=== PATIENT | male | born 1960 | race Caucasian/White ===

== ENCOUNTER 2020-11-30 07:44 | Inpatient (IN) | payer OTHER ==
[2020-11-30] VITALS (9 sets, daily range): BP systolic 121–164; BP diastolic 52–88
[~2020-11-30] VITALS: Ht 167.6 cm; Wt 80.3 kg
[~2020-11-30 07:44] MED LIST: HYDROmorphone 2 MG/ML VIAL IVP PRN; IV RINGERS,LACTATED 1000ML 1,000 ML IV SCH; MORPHINE SULFATE 2 MG/ML INJ. IVP PRN; PROCHLORPERAZINE 10 MG/2 ML VIAL. IVP PRN; fentaNYL PF VIAL 100 MCG/2 ML VIAL IVP PRN
[2020-11-30] MEDS ORDERED: MULT-496 PO (08:21)
[2020-11-30] MEDS ORDERED: CYAN10002 IJ (08:22)
[2020-11-30] MEDS ORDERED: GABA600T7 PO (08:23)
[2020-11-30] MEDS ORDERED: TAMS0.4C97 PO (08:23)
[2020-11-30] MEDS ORDERED: ONDANSETRON PF 4 MG/2 ML VIAL. ONE (08:57)
[2020-11-30] MEDS ORDERED: LIDOCAINE 2% PF 5 ML VIAL. ONE (08:57)
[2020-11-30] MEDS ORDERED: PROPOFOL 10 MG/ML (20ML) VIAL. IV ONE (08:57)
[2020-11-30] MEDS ORDERED: DEXAMETHASONE SOD PHOS 4 MG/ML VIAL ONE ×3 (08:57)
[2020-11-30] MEDS ORDERED: LIDOCAINE 1% PF 5 ML VIAL. ONE (08:57)
[2020-11-30] MEDS: ENOXAPARIN 40 MG/0.4 ML SYRINGE. SQ SCH (09:00)
[2020-11-30] MEDS ORDERED: HYDROmorphone 2 MG/ML VIAL ONE (09:00)
[2020-11-30] MEDS ORDERED: ROCURONIUM 100 MG/10 ML VIAL. ONE ×2 (09:01→11:18)
[2020-11-30] MEDS ORDERED: SEVOFLURANE > 120 MINUTES. IH ONE (09:01)
[2020-11-30] MEDS ORDERED: BUPIVACAINE-EPI 0.5% 30 ML VIAL KIT. ONE (09:34)
[2020-11-30] MEDS: cefOXitin SODIUM IV Push 2 GM VIAL. IVP PRN ×2 (10:11→12:11)
--- NOTE | 2020-11-30 10:40 | PDOC ---
SURGICAL PROGRESS NOTE DATE: 11/30/20 TIME: 10:37 Subjective Pre-Op Note 60 yo M with sigmoid colon mass. TO OR for laparoscopic versus open sigmoid colectomy. R/R/B/A d/w pt and pt's supportive . Risks, including, but not limited to: bleeding, infection, damage to surrounding structures, risk of anesthesia, risk of anastomotic leak, need for ostomy. They appear to understand, their questions are answered and they elect to proceed. Office note H&P reviewed and negative except for HPI. Vital Signs Vital Signs Date Time Temp Pulse Resp B/P (MAP) Pulse Ox O2 Delivery O2 Flow Rate FiO2 11/30/20 08:20 98.1 85 18 126/70 97 Room Air 98.1 Justicifation of Admission Dx: Justifications for Admission: Justification of Admission Dx: Yes Comments: colon resection GRANT SCHULER MD Nov 30, 2020 10:40
[2020-11-30] MEDS ORDERED: ePHEDrine PF IN SALINE 50 MG/10 ML SYRINGE. IV ONE (10:53)
[2020-11-30] MEDS ORDERED: GLYCOPYRROLATE 1 MG/5 ML VIAL. ONE ×3 (12:38→12:56)
[2020-11-30] MEDS ORDERED: NEOSTIGMINE 10 MG/10 ML VIAL. ONE (12:39)
[2020-11-30] MEDS ORDERED: PROCHLORPERAZINE 10 MG/2 ML VIAL. ONE (13:55)
[2020-11-30] MEDS ORDERED: fentaNYL PF VIAL 100 MCG/2 ML VIAL ONE (13:55)
[2020-11-30] MEDS: fentaNYL PF VIAL 100 MCG/2 ML VIAL IVP PRN ×2 (14:00→14:15)
[2020-11-30] MEDS: IV NORMAL SALINE 1000ML BAG 1,000 ML IV SCH (14:30)
[2020-11-30] MEDS ORDERED: ONDANSETRON PF 4 MG/2 ML VIAL. IVP PRN (14:30)
[2020-11-30] MEDS ORDERED: 0.9 % SODIUM CHLORIDE 10 ML DISP.SYRIN. IV PRN (14:30)
[2020-11-30] MEDS ORDERED: NALOXONE 0.4 MG/ML VIAL. IV PRN (14:30)
--- NOTE | 2020-11-30 14:32 | PDOC4 ---
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 Complications: none Operative Note: After obtaining informed consent, patient was taken to OR, induced under GETA and prepped in the usual fashion. 5 mm ports placed LUQ and RUQ, all under laparoscopic guidance. Abdominal cavity was explored and noted as above. Right lobe liver nodule identified and resected with endoshears. Hemostasis obtained with cautery. Frozen section c/w benign process. As other nodules had similar appearance, they are suspected to be benign. Sigmoid colon noted to be adherent to abdominal wall. Given this finding, open procedure is selected. Lower midline incision was made with cautery. Left white line of toldt divided and sigmoid mobilized. No obvious tumor invasion of side wall noted. ABBEY 75 used to divide colon proximal to area of concern and distal. Mesentery take using ligasure. Lymph node dissection extended to origin of inferior mesentery artery and VICENTA was ligated with 0 vicryl suture. Specimen sent to pathology with stitch in distal end. Bilateral ureters identified by Niki's sign (spasm with palpation) and remained uninjured. End to end sutured anastomosis created using inside layer of 3 0 PDS and outside layer of 3 0 vicyrl. When colon was opened, large amount (500 cc) stool evacuated c/w obstructing tumor. Anastomosis noted to be patent, under no tension and completely viable without leakage. Rigid sigmoidoscopy performed and demonstrated patency and no air leakage from anastomosis. Copious irrigation. Paulino drain brought around terminal ileum and out RLQ and secured with 3 0 nylon as ghost ileostomy. Peritoneum repaired with 0 vicryl. Anterior fascia repaired with 0 looped PDS. Skin repaired with 3 0 vicryl and 4 0 monocryl with paulino left in wound and secured with 3 0 nylon. Dressing placed. Patient tolerated procedure well and sent to PACU in stable condition. All counts correct. Wound class is 4. GRANT SCHULER MD Nov 30, 2020 14:32
[2020-11-30] MEDS: MORPHINE SULFATE 30 ML IV PRN (14:33)
[2020-11-30] MEDS: IV RINGERS,LACTATED 1000ML 1,000 ML IV SCH (14:37)
--- NOTE | 2020-11-30 17:22 | RAD ---
AP view of the abdomen Clinical indications: Postoperative study after colectomy. Postoperative count correct. 2 drains in p lace. FINDINGS: There is mild dilatation of the remaining colon measuring approximately 12 centimeters. 2 p enrose drains are apparent within the right side of the anatomic pelvis. Cholecystectomy clips are ap parent within the right upper quadrant. IMPRESSION: Mild postoperative functional ileus. Electronically signed by: Glen Roy MD (11/30/2020 5:20 PM) [id number]
[2020-11-30] MEDS ORDERED: FLU VACC QUAD 21-22 (6MOS+) PF 0.5 ML SYRINGE. VAX IM ONE (20:00)
[2020-12-01] MEDS: IV RINGERS,LACTATED 1000ML 1,000 ML IV SCH ×3 (00:55→20:57)
[2020-12-01 03:34] VITALS: BP 143/71
[2020-12-01 06:48] LABS: BASO % 0 % (0-3); EOS % 0 % (0-3); HEMATOCRIT 42.1 % (39.0-53.0); HEMOGLOBIN 14.4 g/dL (13.0-17.5); LYMPH # 1.3 x10^3/uL (1.0-4.8); LYMPH % 13 % (24-48); MEAN CORPUSCULAR HEMOGLOBIN 31 pg (25-35); MEAN CORPUSCULAR HGB CONC 34 g/dL (31-37); MEAN CORPUSCULAR VOLUME 92 fL (79-100); MONO # 0.5 x10^3/uL (0.0-1.1); MONO % 5 % (0-9); NEUT # 8.4 x10^3/uL (1.8-7.7); NEUT % 82 % (31-73); PLATELET COUNT 238 x10^3/uL (140-400); RED CELL DISTRIBUTION WIDTH 13.5 % (11.5-14.5); WHITE BLOOD COUNT 10.3 x10^3/uL (4.0-11.0)
[2020-12-01 07:00] VITALS: BP 142/80
[2020-12-01 07:01] LABS: CALCIUM 8.5 mg/dL (8.5-10.1); CREATININE 0.8 mg/dL (0.7-1.3); POTASSIUM 3.5 mmol/L (3.5-5.1)
[2020-12-01] MEDS: ENOXAPARIN 40 MG/0.4 ML SYRINGE. SQ SCH (08:22)
[2020-12-01] MEDS: IV NORMAL SALINE 1000ML BAG 1,000 ML IV SCH (08:28)
--- NOTE | 2020-12-01 08:47 | CONS ---
DATE OF CONSULTATION: 12/01/2020 LOCATION: He is in room #414. SUBJECTIVE: This 60-year-old male is well known to me, followup over many years in the office as well as outside the office. The patient was admitted yesterday for resection of the left, nearly obstructing sigmoid colon cancer. Findings at time of surgery included some palpable lymph nodes, which were removed and benign appearing liver lesion, which was biopsied along with the hemicolectomy. He is postop at this point in time complaining mainly of a dry mouth and feeling like his stomach is bloated, but he has had no nausea or vomiting. 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 He has a history of prior right hemicolectomy for high-grade adenoma back in 2017. He has had a prior cholecystectomy. He has history of benign prostatic hypertrophy. MEDICATIONS: Brought with the patient, listed on the computer and have been addressed. ALLERGIES: There are no allergies. 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 Social drinker. Does not abuse drugs. , lives at home with his . FAMILY HISTORY: Noncontributory. REVIEW OF SYSTEMS: As mentioned above. PHYSICAL EXAMINATION: GENERAL: He is a well-developed, well-nourished white male who appears 1 day postop. VITAL SIGNS: Stable. He is afebrile. O2 sats are good on 2 liters. HEAD, EYES, EARS, NOSE AND THROAT: Unremarkable. NECK: Supple. No lymphadenopathy, no thyromegaly. CHEST: Clear to auscultation. HEART: Regular rate and rhythm without S3, S4 or murmur. ABDOMEN: Soft, silent, bandaged. EXTREMITIES: Without cyanosis, clubbing, edema. NEUROLOGIC: Nonfocal. IMPRESSION:: 1. Status post left hemicolectomy for cancer of the colon with pathology pending. 2. Peripheral neuropathy due to B12 deficiency. PLAN: Continued regular postop care. Await return of bowel function. Pathology pending with further plans based on findings there, which hopefully are going to be good. LIAN/ELSI PFEIFFER: KRYS/shayne TID: [id number]
--- NOTE | 2020-12-01 09:23 | PDOC ---
SURGICAL PROGRESS NOTE DATE: 12/01/20 TIME: 09:22 Subjective resting sore no flatus Vital Signs Vital Signs Date Time Temp Pulse Resp B/P (MAP) Pulse Ox O2 Delivery O2 Flow Rate FiO2 12/01/20 07:51 Nasal Cannula 2.0 12/01/20 07:00 98.4 93 20 142/80 (100) 95 98.4 I&O Intake and Output 12/01/20 06:59 Intake Total 2800 ml Output Total 1100 ml Balance 1700 ml Intake IV Total 2800 ml Output Urine Total 1000 ml Estimated Blood Loss 100 ml General: Alert, Oriented X3, Cooperative Abdomen: Soft, Other (mildly distended , dressing intact ) Labs Laboratory Tests Test 12/01/20 06:35 White Blood Count 10.3 x10^3/uL (4.0-11.0) Red Blood Count 4.60 x10^6/uL (4.30-5.70) Hemoglobin 14.4 g/dL (13.0-17.5) Hematocrit 42.1 % (39.0-53.0) Mean Corpuscular Volume 92 fL (79-100) Mean Corpuscular Hemoglobin 31 pg (25-35) Mean Corpuscular Hemoglobin Concent 34 g/dL (31-37) Red Cell Distribution Width 13.5 % (11.5-14.5) Platelet Count 238 x10^3/uL (140-400) Neutrophils (%) (Auto) 82 % (31-73) Lymphocytes (%) (Auto) 13 % (24-48) Monocytes (%) (Auto) 5 % (0-9) Eosinophils (%) (Auto) 0 % (0-3) Basophils (%) (Auto) 0 % (0-3) Neutrophils # (Auto) 8.4 x10^3/uL (1.8-7.7) Lymphocytes # (Auto) 1.3 x10^3/uL (1.0-4.8) Monocytes # (Auto) 0.5 x10^3/uL (0.0-1.1) Eosinophils # (Auto) 0.0 x10^3/uL (0.0-0.7) Basophils # (Auto) 0.0 x10^3/uL (0.0-0.2) Sodium Level 138 mmol/L (136-145) Potassium Level 3.5 mmol/L (3.5-5.1) Chloride Level 101 mmol/L (98-107) Carbon Dioxide Level 30 mmol/L (21-32) Anion Gap 7 (6-14) Blood Urea Nitrogen 8 mg/dL (8-26) Creatinine 0.8 mg/dL (0.7-1.3) Estimated GFR (Cockcroft-Gault) 98.0 Glucose Level 119 mg/dL (70-99) Calcium Level 8.5 mg/dL (8.5-10.1) Laboratory Tests Test 12/01/20 06:35 White Blood Count 10.3 x10^3/uL (4.0-11.0) Red Blood Count 4.60 x10^6/uL (4.30-5.70) Hemoglobin 14.4 g/dL (13.0-17.5) Hematocrit 42.1 % (39.0-53.0) Mean Corpuscular Volume 92 fL (79-100) Mean Corpuscular Hemoglobin 31 pg (25-35) Mean Corpuscular Hemoglobin Concent 34 g/dL (31-37) Red Cell Distribution Width 13.5 % (11.5-14.5) Platelet Count 238 x10^3/uL (140-400) Neutrophils (%) (Auto) 82 % (31-73) Lymphocytes (%) (Auto) 13 % (24-48) Monocytes (%) (Auto) 5 % (0-9) Eosinophils (%) (Auto) 0 % (0-3) Basophils (%) (Auto) 0 % (0-3) Neutrophils # (Auto) 8.4 x10^3/uL (1.8-7.7) Lymphocytes # (Auto) 1.3 x10^3/uL (1.0-4.8) Monocytes # (Auto) 0.5 x10^3/uL (0.0-1.1) Eosinophils # (Auto) 0.0 x10^3/uL (0.0-0.7) Basophils # (Auto) 0.0 x10^3/uL (0.0-0.2) Sodium Level 138 mmol/L (136-145) Potassium Level 3.5 mmol/L (3.5-5.1) Chloride Level 101 mmol/L (98-107) Carbon Dioxide Level 30 mmol/L (21-32) Anion Gap 7 (6-14) Blood Urea Nitrogen 8 mg/dL (8-26) Creatinine 0.8 mg/dL (0.7-1.3) Estimated GFR (Cockcroft-Gault) 98.0 Glucose Level 119 mg/dL (70-99) Calcium Level 8.5 mg/dL (8.5-10.1) Assessment/Plan await bowel function increase activity today Justicifation of Admission Dx: Justifications for Admission: Justification of Admission Dx: Yes ANA MARÍA GARCIA APRN Dec 01, 2020 09:23
[2020-12-01] MEDS: MORPHINE SULFATE 30 ML IV PRN ×2 (10:04→21:05)
--- NOTE | 2020-12-01 10:26 | NUR ---
SW following. Discussed with RN, pt from home with , 2L (does not use oxygen at home), NPO, [employer]PER[employer]. Pt had surgery on 11/30/20. RN advised no SW needs at this time. SW will continue to follow.
[2020-12-01 10:37] VITALS: BP 120/75
[2020-12-01 15:00] VITALS: BP 127/70
--- NOTE | 2020-12-01 18:08 | PATHOLOGY ---
[facility] Accession Number: [id number] . 01 Material submitted: . PART A: liver - LIVER BIOPSY-FS PART B: sigmoid colon - SIGMOID COLON-STITCH DISTAL . 01 Clinical history: . COLON CANCER HS VS OPEN SIGMOID COLECTOMY POSS PROTECTING LOOP/ ILEOSTOMY FRESH FOR FROZEN COLECTOMY SIGMOID A: LIVER BIOPSY-SMALL HYALINIZED NODULE- NEGATIVE FOR MALIGNANCY RESULT REPORTED TO Ramsey QUICK IN THE OR . 02 Frozen section diagnosis: . INTRAOPERATIVE CONSULTATION WITH FROZEN SECTION: (Ike Turk M.D.): . FSA1. Liver biopsy: - Small hyalinized nodule - negative for malignancy. . The results are reported to Dr. Quick in the operating room. . Frozen section performed at [facility], [address] [place] [address]. . . FROZEN SECTION GROSS DESCRIPTION: A. The specimen is received fresh for intraoperative consultation and is designated "liver biopsy". This consists of a small wedge of yellow-brown liver tissue measuring up to 0.5 x 0.3 cm. On the surface there is a 2 mm landa nodule present. This is submitted for frozen section as FSA1. The tissue remaining from frozen section is submitted for permanent sections as A1. (JPKat/db; 11/30/2020) HEDY/GARRETT . 02 Diagnosis: A. Liver biopsy: - Small hyalinized nodule - negative for malignancy. . B. Segment of colon with attached mesocolon, sigmoid colectomy: - Invasive colorectal adenocarcinoma, moderately differentiated, forming a centrally ulcerated tumor mass with raised borders measuring 3.3 cm in greatest dimension, with tumor invasion through muscularis propria into subserosa. - Metastatic adenocarcinoma involving 12 of 28 mesocolic lymph nodes (12/28). - Proximal, distal, and mesocolic margins of resection negative for tumor. - Inked serosal surface of sigmoid colon negative for tumor. . (JPM:cale:wendi; 12/01/2020) . . . Surgical Pathology Cancer Case Summary . COLON AND RECTUM: Resection, Including Transanal Disk Excision of Rectal Neoplasms . Procedure ___ Other: B. Sigmoidectomy . Tumor Site ___ Sigmoid colon . Tumor Size Greatest dimension: 3.3 cm . Macroscopic Tumor Perforation ___ Not identified . Histologic Type ___ Adenocarcinoma . Histologic Grade ___ G2: Moderately differentiated . Tumor Extension ___ Tumor invades through the muscularis propria into pericolorectal tissue . Margins ___ All margins are uninvolved by invasive carcinoma, high grade dysplasia / intramucosal carcinoma, and low grade dysplasia . Margins examined: Proximal, distal, and mesocolic margins . + Distance of invasive carcinoma from closest margin: 9.0 cm . + Specify closest margin: Distal margin . . Treatment Effect ___ No known presurgical therapy . Lymphovascular Invasion ___ Not identified . Perineural Invasion ___ Not identified . + Type of Polyp in Which Invasive Carcinoma Arose + ___ None identified . Tumor Deposits ___ Not identified . Regional Lymph Nodes . Number of Lymph Nodes Involved: 12 . Number of Lymph Nodes Examined: 28 . . Pathologic Stage Classification (pTNM, AJCC 8th Edition) . Primary Tumor (pT) ___ pT3: Tumor invades through the muscularis propria into pericolorectal tissues . Regional Lymph Nodes (pN) ___ pN2b: Seven or more regional lymph nodes are positive . + Additional Pathologic Findings + ___ None identified . (JPM:lesli; 12/01/2020) [facility] 12/01/2020 1541 Local . 02 Electronically signed: . Beto Turk MD, Pathologist NPI- [id number] . 01 Gross description: . A. SEE GROSS DESCRIPTION. . B. The specimen is received in formalin, labeled "Kamlesh, Berhane, sigmoid colon-stitch distal" and consists of an oriented segment of sigmoid colon (30.7 cm in length by 2.8 cm diameter) with abundant attached fat. The specimen has been oriented with a stitch designating the distal end. The serosa is pink and dusky and displays a focal area of puckering (inked black, 2.1 x 1.8 cm). The proximal margin is inked blue, the distal margin is inked green, and the mesenteric margin is selectively inked orange. Located 3.3 cm and 6.0 cm from the serosal area of puckering, on the serosa of the attached fat, are two pale landa areas of discoloration (0.6 x 0.3 cm and 0.4 x 0.4 cm respectively) which are differentially inked blue and yellow, respectively. The specimen is opened to reveal, directly underlying the area of puckering, a landa-pink mass (3.3 x 2.7 cm) with raised, serpiginous borders and a granular, depressed center that comes to within 9.0 cm from the distal margin, 16.1 cm from the proximal margin, and approximately 10.5 cm from the mesenteric margin. Sectioning reveals landa semi-firm and fibrotic cut surfaces measuring up to 0.9 cm thick. The mass is suspicious for involving the overlying serosa (inked black) and invades 0.2 cm into the overlying attached fat. Sectioning through the fatty serosal areas of discoloration (inked blue and yellow) reveals two grossly positive candidate lymph nodes (0.9 x 0.9 x 0.9 cm and 1.4 x 0.8 x 0.8 cm). Twenty-three landa candidate lymph nodes (ranging from 0.2 x 0.2 x 0.2 cm to 1.5 x 1.3 x 1.1 cm) are identified in the attached fat, as well as five matted lymph nodes (0.5 x 0.4 x 0.4 cm to 1.3 x 1.1 x 1.1 cm). Photographs are taken. Latrine Cleaner sections to include the entirety of the candidate lymph nodes (that are not grossly positive) are submitted as follows: . B1-B2: Proximal margin, submitted en face, entirely submitted B3-B4: Distal margin, submitted en face, entirely submitted B5-B6: Mesenteric margin, submitted en face, represented B7-B11: Mass, represented to show proximity to overlying serosa in B7-B8, mass invading into attached fat in B9-B10 and mass to show adjacent uninvolved mucosa represented in B11 B12: Serosal areas of discoloration on attached fat with 2 grossly positive candidate lymph nodes, represented B13-B14: 5 grossly positive candidate lymph nodes (4 in B13 and 1 in B14) (from matted lymph nodes), represented B15: 2 grossly positive candidate lymph nodes, differentially inked red and green, represented B16: 3 intact candidate lymph nodes, entirely submitted B17-B18: 4 intact candidate lymph nodes within each cassette, entirely submitted B19: 3 intact candidate lymph nodes, entirely submitted B20: 2 bisected candidate lymph nodes, differentially inked black and blue, entirely submitted B21: 1 bisected lymph node (inked green) and 1 serially sectioned lymph node (with orange ink) showing proximity to mesenteric margin, entirely submitted B22: 2 bisected lymph nodes, 1 of which is inked black, the other is not inked, entirely submitted B23: 1 trisected candidate lymph node, entirely submitted (CRAIG; 11/30/2020) DKA/LBQ 12/01/2020 1330 Local . 02 Pathologist provided ICD-10: C18.7, C77.2 . 02 CPT . 189891, 522774, [id number] Specimen Comment: A courtesy copy of this report has been sent to [phone], [phone] Specimen Comment: [id number] Specimen Comment: Report sent to / DR PAZ Performed at: 01 [facility] [address] [place] [address], [place] [id number] MD Doug Funes MD Phone: [phone] Performed at: 02 [facility] [address] [place], [place] [id number] MD Beto Turk MD Phone: [phone]
[2020-12-01 19:00] VITALS: BP 133/74
[2020-12-01 23:00] VITALS: BP 125/75
[2020-12-02 03:00] VITALS: BP 138/76
[2020-12-02] MEDS: IV RINGERS,LACTATED 1000ML 1,000 ML IV SCH ×2 (05:39→16:11)
[2020-12-02 07:00] VITALS: BP 133/72
[2020-12-02] MEDS: MORPHINE SULFATE 30 ML IV PRN ×2 (09:00→20:23)
[2020-12-02] MEDS: ENOXAPARIN 40 MG/0.4 ML SYRINGE. SQ SCH (09:02)
[2020-12-02 11:00] VITALS: BP 129/73
--- NOTE | 2020-12-02 11:43 | PDOC ---
PROGRESS NOTES Date of Service DATE: 12/02/20 TIME: 11:43 Subjective Subjective doing "ok", no specific complaints Objective Objective Vital Signs Date Time Temp Pulse Resp B/P (MAP) Pulse Ox O2 Delivery O2 Flow Rate FiO2 12/02/20 09:32 Nasal Cannula 2.0 12/02/20 09:00 95 12/02/20 07:00 98.1 91 18 133/72 (92) 98.1 Intake and Output 12/02/20 07:00 Intake Total 1000 ml Output Total 2950 ml Balance -1950 ml Intake Oral 0 ml IV Total 1000 ml Output Urine Total 2950 ml Physical Exam Abdomen: Soft (dressing intact) Assessment Assessment POD 2 sigmoid resection Plan Plan of Care Supportive care, mobilize Comment Review of Relevant I have reviewed the following items maya (where applicable) has been applied. Labs Laboratory Tests Test 12/01/20 06:35 White Blood Count 10.3 x10^3/uL (4.0-11.0) Red Blood Count 4.60 x10^6/uL (4.30-5.70) Hemoglobin 14.4 g/dL (13.0-17.5) Hematocrit 42.1 % (39.0-53.0) Mean Corpuscular Volume 92 fL (79-100) Mean Corpuscular Hemoglobin 31 pg (25-35) Mean Corpuscular Hemoglobin Concent 34 g/dL (31-37) Red Cell Distribution Width 13.5 % (11.5-14.5) Platelet Count 238 x10^3/uL (140-400) Neutrophils (%) (Auto) 82 % (31-73) Lymphocytes (%) (Auto) 13 % (24-48) Monocytes (%) (Auto) 5 % (0-9) Eosinophils (%) (Auto) 0 % (0-3) Basophils (%) (Auto) 0 % (0-3) Neutrophils # (Auto) 8.4 x10^3/uL (1.8-7.7) Lymphocytes # (Auto) 1.3 x10^3/uL (1.0-4.8) Monocytes # (Auto) 0.5 x10^3/uL (0.0-1.1) Eosinophils # (Auto) 0.0 x10^3/uL (0.0-0.7) Basophils # (Auto) 0.0 x10^3/uL (0.0-0.2) Sodium Level 138 mmol/L (136-145) Potassium Level 3.5 mmol/L (3.5-5.1) Chloride Level 101 mmol/L (98-107) Carbon Dioxide Level 30 mmol/L (21-32) Anion Gap 7 (6-14) Blood Urea Nitrogen 8 mg/dL (8-26) Creatinine 0.8 mg/dL (0.7-1.3) Estimated GFR (Cockcroft-Gault) 98.0 Glucose Level 119 mg/dL (70-99) Calcium Level 8.5 mg/dL (8.5-10.1) Medications Current Medications Fentanyl Citrate (Fentanyl 2ml Vial) 25 mcg PRN Q5MIN PRN IVP MILD PAIN 1-3; Start 11/30/20 at 06:00; Stop 11/30/20 at 15:46; Status DC Fentanyl Citrate (Fentanyl 2ml Vial) 50 mcg PRN Q5MIN PRN IVP MODERATE PAIN 4-6 Last administered on 11/30/20at 14:15; Start 11/30/20 at 06:00; Stop 11/30/20 at 15:46; Status DC Morphine Sulfate (Morphine Sulfate) 1 mg PRN Q10MIN PRN IVP SEVERE PAIN 7-10; Start 11/30/20 at 06:00; Stop 11/30/20 at 15:46; Status DC Ringer's Solution 1,000 ml @ 30 mls/hr Q24H IV Last administered on 11/30/20at 08:36; Start 11/30/20 at 06:00; Stop 11/30/20 at 17:59; Status DC Hydromorphone HCl (Dilaudid) 0.5 mg PRN Q10MIN PRN IVP SEVERE PAIN 7-10, 2nd CHOICE; Start 11/30/20 at 06:00; Stop 11/30/20 at 15:46; Status DC Prochlorperazine Edisylate (Compazine) 5 mg PACU PRN PRN IVP NAUSEA, MRX1 Last administered on 11/30/20at 14:00; Start 11/30/20 at 06:00; Stop 11/30/20 at 15:46; Status DC Cefoxitin Sodium (Mefoxin) 2 gm 1X PRN PRN IVP PRIOR TO PROCEDURE Last administered on 11/30/20at 12:11; Start 11/30/20 at 06:00; Stop 11/30/20 at 21:00; Status DC Propofol (Diprivan) 200 mg STK-MED ONCE IV ; Start 11/30/20 at 08:57; Stop 11/30/20 at 08:57; Status DC Lidocaine HCl (Lidocaine Pf 2% Vial) 5 ml STK-MED ONCE .ROUTE ; Start 11/30/20 at 08:57; Stop 11/30/20 at 08:57; Status DC Ondansetron HCl (Zofran) 4 mg STK-MED ONCE .ROUTE ; Start 11/30/20 at 08:57; Stop 11/30/20 at 08:57; Status DC Dexamethasone Sodium Phosphate (Decadron) 4 mg STK-MED ONCE .ROUTE ; Start 11/30/20 at 08:57; Stop 11/30/20 at 08:57; Status DC Dexamethasone Sodium Phosphate (Decadron) 4 mg STK-MED ONCE .ROUTE ; Start 11/30/20 at 08:57; Stop 11/30/20 at 08:58; Status DC Dexamethasone Sodium Phosphate (Decadron) 4 mg STK-MED ONCE .ROUTE ; Start 11/30/20 at 08:57; Stop 11/30/20 at 08:58; Status DC Lidocaine HCl (Xylocaine-Mpf 1% 5ml Vial) 5 ml STK-MED ONCE .ROUTE ; Start 11/30/20 at 08:57; Stop 11/30/20 at 08:58; Status DC Hydromorphone HCl (Dilaudid) 2 mg STK-MED ONCE .ROUTE ; Start 11/30/20 at 09:00; Stop 11/30/20 at 09:01; Status DC Rocuronium Arley (Zemuron) 100 mg STK-MED ONCE .ROUTE ; Start 11/30/20 at 09:01; Stop 11/30/20 at 09:01; Status DC Sevoflurane (Ultane) 90 ml STK-MED ONCE IH ; Start 11/30/20 at 09:01; Stop 11/30/20 at 09:01; Status DC Bupivacaine HCl/ Epinephrine Bitart (Sensorcain-Epi 0.5% Kit) 30 ml STK-MED ONCE .ROUTE Last administered on 11/30/20at 10:47; Start 11/30/20 at 09:34; Stop 11/30/20 at 09:34; Status DC Ephedrine Sulfate (ePHEDrine PF IN SALINE SYRINGE) 50 mg STK-MED ONCE IV ; Start 11/30/20 at 10:53; Stop 11/30/20 at 10:54; Status DC Rocuronium Arley (Zemuron) 100 mg STK-MED ONCE .ROUTE ; Start 11/30/20 at 11:18; Stop 11/30/20 at 11:18; Status DC Glycopyrrolate (Robinul) 1 mg STK-MED ONCE .ROUTE ; Start 11/30/20 at 12:38; Stop 11/30/20 at 12:38; Status DC Neostigmine Methylsulfate (Bloxiverz) 10 mg STK-MED ONCE .ROUTE ; Start 11/30/20 at 12:39; Stop 11/30/20 at 12:39; Status DC Glycopyrrolate (Robinul) 1 mg STK-MED ONCE .ROUTE ; Start 11/30/20 at 12:40; Stop 11/30/20 at 12:41; Status DC Glycopyrrolate (Robinul) 1 mg STK-MED ONCE .ROUTE ; Start 11/30/20 at 12:56; Stop 11/30/20 at 12:56; Status DC Fentanyl Citrate (Fentanyl 2ml Vial) 100 mcg STK-MED ONCE .ROUTE ; Start 11/30/20 at 13:55; Stop 11/30/20 at 13:56; Status DC Prochlorperazine Edisylate (Compazine) 10 mg STK-MED ONCE .ROUTE ; Start 11/30/20 at 13:55; Stop 11/30/20 at 13:56; Status DC Enoxaparin Sodium (Lovenox 40mg Syringe) 40 mg Q24H SQ Last administered on 12/02/20at 09:02; Start 11/30/20 at 09:00 Sodium Chloride (Normal Saline Flush) 3 ml QSHIFT PRN IV AFTER MEDS AND BLOOD DRAWS; Start 11/30/20 at 14:30 Ringer's Solution 1,000 ml @ 100 mls/hr Q10H IV Last administered on 12/02/20at 05:39; Start 11/30/20 at 14:30 Naloxone HCl (Narcan) 0.4 mg PRN Q2MIN PRN IV SEE INSTRUCTIONS; Start 11/30/20 at 14:30 Sodium Chloride 1,000 ml @ 25 mls/hr Q24H IV ; Start 11/30/20 at 14:30 Morphine Sulfate 30 ml @ 0 mls/hr CONT PRN PRN IV PER PROTOCOL Last administered on 12/02/20at 09:00; Start 11/30/20 at 14:30 Ondansetron HCl (Zofran) 4 mg PRN Q6HRS PRN IVP NAAMALIAA, 1ST CHOICE; Start 11/30/20 at 14:30 Influenza Virus Vaccine Quadrival (Flulaval Quad [id number] Syringe) 0.5 ml ONCE ONCE VAX IM Last administered on 12/01/20at 08:25; Start 11/30/20 at 20:00; Stop 11/30/20 at 20:01; Status DC Active Scripts Active Reported Gabapentin 600 Mg Tablet 300 Mg PO BID Flomax (Tamsulosin Hcl) 0.4 Mg Cap.er.24h 1 Cap PO DAILY Cyanocobalamin Injection (Cyanocobalamin (Vitamin B-12)) 1,000 Mcg/1 Ml Vial 1,000 Mcg IJ WEEKLY Daily Value (Multivitamin) 1 Each Tablet 1 Tab PO DAILY 30 Days Vitals/I & O Vital Sign - Last 24 Hours 12/01/20 12/01/20 12/01/20 12/01/20 15:00 19:00 20:15 20:20 Temp 98.1 98.6 98.1 98.6 Pulse 86 91 Resp 20 18 B/P (MAP) 127/70 (89) 133/74 (93) Pulse Ox 97 95 O2 Delivery Room Air Nasal Cannula Nasal Cannula Nasal Cannula O2 Flow Rate 2.0 2.0 2.0 12/01/20 12/01/20 12/02/20 12/02/20 21:53 23:00 03:00 07:00 Temp 98.1 98.6 98.1 98.1 98.6 98.1 Pulse 100 90 91 Resp 18 18 18 B/P (MAP) 125/75 (92) 138/76 (96) 133/72 (92) Pulse Ox 94 94 95 95 O2 Delivery Nasal Cannula Nasal Cannula Nasal Cannula Nasal Cannula O2 Flow Rate 2.0 2.0 2.0 12/02/20 12/02/20 09:00 09:32 Pulse Ox 95 O2 Delivery Nasal Cannula Nasal Cannula O2 Flow Rate 2.0 2.0 Intake and Output 12/01/20 12/01/20 12/02/20 15:00 23:00 07:00 Intake Total 1000 ml Output Total 950 ml 2000 ml Balance -950 ml 1000 ml -2000 ml Justifications for Admission Other Justification CICI HO MD Dec 02, 2020 11:43
[2020-12-02] MEDS: IV NORMAL SALINE 1000ML BAG 1,000 ML IV SCH (14:30)
[2020-12-02 15:00] VITALS: BP 147/73
[2020-12-02 19:25] VITALS: BP 140/78
[2020-12-02 23:23] VITALS: BP 161/74
[2020-12-03 03:24] VITALS: BP 142/79
[2020-12-03] MEDS: IV RINGERS,LACTATED 1000ML 1,000 ML IV SCH ×2 (03:28→13:40)
[2020-12-03 07:15] VITALS: BP 145/84
[2020-12-03] MEDS: ENOXAPARIN 40 MG/0.4 ML SYRINGE. SQ SCH (08:59)
[2020-12-03] MEDS: MORPHINE SULFATE 30 ML IV PRN ×2 (09:47→22:04)
--- NOTE | 2020-12-03 11:14 | PN ---
DATE: 12/03/2020 DAILY PROGRESS NOTE LOCATION: He is in room 411. SUBJECTIVE: This 60-year-old white male remains hospitalized after removal of left colon cancer. It feels like he is improving slightly in the amount of pain, still has not had any return of bowel function, had a Sandoval catheter pulled approximately 3 hours ago and has not had any urination yet. OBJECTIVE: VITAL SIGNS: Stable. He is afebrile. GENERAL: He is awake and alert. CHEST: Clear. HEART: Regular. ABDOMEN: Soft and silent. EXTREMITIES: Without cyanosis, clubbing or edema. LABORATORY DATA: He does have pathologies back this morning showing moderately differentiated tumor 3.3 cm greatest dimension with tumor invasion through the muscularis propria into the subserosa and 12 of 28 mesocolic lymph nodes positive. ASSESSMENT: 1. Colon cancer with pathology as above. 2. Ongoing ileus postoperatively. PLAN: Continue present care. We will ask Oncology to see him probably tomorrow. Otherwise, same encouraged increased activity. JOEY DR: Khoa TID: [id number]
[2020-12-03 11:15] VITALS: BP 150/82
--- NOTE | 2020-12-03 11:57 | PN ---
DATE: 12/02/2020 LOCATION: He is in room #414. SUBJECTIVE: This 60-year-old male remains hospitalized after left colon resection for carcinoma of the colon. He is postoperative day #2. He states he had a better night. There has been no sign of return of bowel function, although he has felt like he might have the bowel movement. He did get a little more sleep last night. He still complains of dry mouth. OBJECTIVE: VITAL SIGNS: Stable and afebrile. GENERAL: He is awake and alert. He remains on O2. CHEST: Clear. HEART: Regular. ABDOMEN: Soft, silent, benign. EXTREMITIES: He has SCD hose on. NEUROLOGIC: Other than his left arm weakness which is present before admission and within normal limits. ASSESSMENT: 1. Postop day #2 status post left colon resection for carcinoma of the colon. 2. 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 3. Satisfactory postoperative return of bowel function. PLAN: Continue supportive care. return of bowel function. Final pathology. We will dictate plans for further treatment. BOWEN DR: Khoa TID: [id number]
--- NOTE | 2020-12-03 13:08 | PDOC ---
PROGRESS NOTES Date of Service DATE: 12/03/20 TIME: 13:06 Subjective Subjective Doing ok, feels bloated Objective Objective Vital Signs Date Time Temp Pulse Resp B/P (MAP) Pulse Ox O2 Delivery O2 Flow Rate FiO2 12/03/20 11:15 99.0 85 20 150/82 (104) 96 Room Air 99.0 12/03/20 07:59 2.0 Intake and Output 12/03/20 07:00 Intake Total 2400 ml Output Total 1600 ml Balance 800 ml Intake Oral 0 ml IV Total 1200 ml Other 1200 ml Output Urine Total 1600 ml Assessment Assessment S/P sigmoid colon resection Plan Plan of Care Postop care, await return of bowel function Comment Review of Relevant I have reviewed the following items maya (where applicable) has been applied. Medications Current Medications Fentanyl Citrate (Fentanyl 2ml Vial) 25 mcg PRN Q5MIN PRN IVP MILD PAIN 1-3; Start 11/30/20 at 06:00; Stop 11/30/20 at 15:46; Status DC Fentanyl Citrate (Fentanyl 2ml Vial) 50 mcg PRN Q5MIN PRN IVP MODERATE PAIN 4-6 Last administered on 11/30/20at 14:15; Start 11/30/20 at 06:00; Stop 11/30/20 at 15:46; Status DC Morphine Sulfate (Morphine Sulfate) 1 mg PRN Q10MIN PRN IVP SEVERE PAIN 7-10; Start 11/30/20 at 06:00; Stop 11/30/20 at 15:46; Status DC Ringer's Solution 1,000 ml @ 30 mls/hr Q24H IV Last administered on 11/30/20at 08:36; Start 11/30/20 at 06:00; Stop 11/30/20 at 17:59; Status DC Hydromorphone HCl (Dilaudid) 0.5 mg PRN Q10MIN PRN IVP SEVERE PAIN 7-10, 2nd CHOICE; Start 11/30/20 at 06:00; Stop 11/30/20 at 15:46; Status DC Prochlorperazine Edisylate (Compazine) 5 mg PACU PRN PRN IVP NAUSEA, MRX1 Last administered on 11/30/20at 14:00; Start 11/30/20 at 06:00; Stop 11/30/20 at 15:46; Status DC Cefoxitin Sodium (Mefoxin) 2 gm 1X PRN PRN IVP PRIOR TO PROCEDURE Last administered on 11/30/20at 12:11; Start 11/30/20 at 06:00; Stop 11/30/20 at 21:00; Status DC Propofol (Diprivan) 200 mg STK-MED ONCE IV ; Start 11/30/20 at 08:57; Stop 11/30/20 at 08:57; Status DC Lidocaine HCl (Lidocaine Pf 2% Vial) 5 ml STK-MED ONCE .ROUTE ; Start 11/30/20 at 08:57; Stop 11/30/20 at 08:57; Status DC Ondansetron HCl (Zofran) 4 mg STK-MED ONCE .ROUTE ; Start 11/30/20 at 08:57; Stop 11/30/20 at 08:57; Status DC Dexamethasone Sodium Phosphate (Decadron) 4 mg STK-MED ONCE .ROUTE ; Start 11/30/20 at 08:57; Stop 11/30/20 at 08:57; Status DC Dexamethasone Sodium Phosphate (Decadron) 4 mg STK-MED ONCE .ROUTE ; Start 11/30/20 at 08:57; Stop 11/30/20 at 08:58; Status DC Dexamethasone Sodium Phosphate (Decadron) 4 mg STK-MED ONCE .ROUTE ; Start 11/30/20 at 08:57; Stop 11/30/20 at 08:58; Status DC Lidocaine HCl (Xylocaine-Mpf 1% 5ml Vial) 5 ml STK-MED ONCE .ROUTE ; Start 11/30/20 at 08:57; Stop 11/30/20 at 08:58; Status DC Hydromorphone HCl (Dilaudid) 2 mg STK-MED ONCE .ROUTE ; Start 11/30/20 at 09:00; Stop 11/30/20 at 09:01; Status DC Rocuronium [place] (Zemuron) 100 mg STK-MED ONCE .ROUTE ; Start 11/30/20 at 09:01; Stop 11/30/20 at 09:01; Status DC Sevoflurane (Ultane) 90 ml STK-MED ONCE IH ; Start 11/30/20 at 09:01; Stop 11/30/20 at 09:01; Status DC Bupivacaine HCl/ Epinephrine Bitart (Sensorcain-Epi 0.5% Kit) 30 ml STK-MED ONCE .ROUTE Last administered on 11/30/20at 10:47; Start 11/30/20 at 09:34; Stop 11/30/20 at 09:34; Status DC Ephedrine Sulfate (ePHEDrine PF IN SALINE SYRINGE) 50 mg STK-MED ONCE IV ; Start 11/30/20 at 10:53; Stop 11/30/20 at 10:54; Status DC Rocuronium [place] (Zemuron) 100 mg STK-MED ONCE .ROUTE ; Start 11/30/20 at 11:18; Stop 11/30/20 at 11:18; Status DC Glycopyrrolate (Robinul) 1 mg STK-MED ONCE .ROUTE ; Start 11/30/20 at 12:38; Stop 11/30/20 at 12:38; Status DC Neostigmine Methylsulfate (Bloxiverz) 10 mg STK-MED ONCE .ROUTE ; Start 11/30/20 at 12:39; Stop 11/30/20 at 12:39; Status DC Glycopyrrolate (Robinul) 1 mg STK-MED ONCE .ROUTE ; Start 11/30/20 at 12:40; Stop 11/30/20 at 12:41; Status DC Glycopyrrolate (Robinul) 1 mg STK-MED ONCE .ROUTE ; Start 11/30/20 at 12:56; Stop 11/30/20 at 12:56; Status DC Fentanyl Citrate (Fentanyl 2ml Vial) 100 mcg STK-MED ONCE .ROUTE ; Start 11/30/20 at 13:55; Stop 11/30/20 at 13:56; Status DC Prochlorperazine Edisylate (Compazine) 10 mg STK-MED ONCE .ROUTE ; Start 11/30/20 at 13:55; Stop 11/30/20 at 13:56; Status DC Enoxaparin Sodium (Lovenox 40mg Syringe) 40 mg Q24H SQ Last administered on 12/03/20at 08:59; Start 11/30/20 at 09:00 Sodium Chloride (Normal Saline Flush) 3 ml QSHIFT PRN IV AFTER MEDS AND BLOOD DRAWS; Start 11/30/20 at 14:30 Ringer's Solution 1,000 ml @ 100 mls/hr Q10H IV Last administered on 12/03/20at 03:28; Start 11/30/20 at 14:30 Naloxone HCl (Narcan) 0.4 mg PRN Q2MIN PRN IV SEE INSTRUCTIONS; Start 11/30/20 at 14:30 Sodium Chloride 1,000 ml @ 25 mls/hr Q24H IV ; Start 11/30/20 at 14:30 Morphine Sulfate 30 ml @ 0 mls/hr CONT PRN PRN IV PER PROTOCOL Last administered on 12/03/20at 09:47; Start 11/30/20 at 14:30 Ondansetron HCl (Zofran) 4 mg PRN Q6HRS PRN IVP NAUESA, 1ST CHOICE; Start 11/30/20 at 14:30 Influenza Virus Vaccine Quadrival (Flulaval Quad 6600-5485 Syringe) 0.5 ml ONCE ONCE VAX IM Last administered on 12/01/20at 08:25; Start 11/30/20 at 20:00; Stop 11/30/20 at 20:01; Status DC Active Scripts Active Reported Gabapentin 600 Mg Tablet 300 Mg PO BID Flomax (Tamsulosin Hcl) 0.4 Mg Cap.er.24h 1 Cap PO DAILY Cyanocobalamin Injection (Cyanocobalamin (Vitamin B-12)) 1,000 Mcg/1 Ml Vial 1,000 Mcg IJ WEEKLY Daily Value (Multivitamin) 1 Each Tablet 1 Tab PO DAILY 30 Days Vitals/I & O Vital Sign - Last 24 Hours 12/02/20 12/02/20 12/02/20 12/02/20 15:00 19:25 20:00 20:23 Temp 97.8 98.4 97.8 98.4 Pulse 80 83 Resp 18 18 20 B/P (MAP) 147/73 (97) 140/78 (98) Pulse Ox 95 95 O2 Delivery Nasal Cannula Room Air Nasal Cannula Nasal Cannula O2 Flow Rate 2.0 2.0 2.0 12/02/20 12/02/20 12/03/20 12/03/20 20:53 23:23 03:24 07:15 Temp 98.5 98.3 98.3 98.5 98.3 98.3 Pulse 93 86 84 Resp 20 18 20 20 B/P (MAP) 161/74 (103) 142/79 (100) 145/84 (104) Pulse Ox 96 95 95 O2 Delivery Nasal Cannula Nasal Cannula Room Air Room Air O2 Flow Rate 2.0 2.0 12/03/20 12/03/20 07:59 11:15 Temp 99.0 99.0 Pulse 85 Resp 20 B/P (MAP) 150/82 (104) Pulse Ox 96 O2 Delivery Nasal Cannula Room Air O2 Flow Rate 2.0 Intake and Output 12/02/20 12/02/20 12/03/20 15:00 23:00 07:00 Intake Total 0 ml 0 ml 2400 ml Output Total 1600 ml Balance 0 ml 0 ml 800 ml Justifications for Admission Other Justification CICI HO MD Dec 03, 2020 13:08
[2020-12-03] MEDS: IV NORMAL SALINE 1000ML BAG 1,000 ML IV SCH (13:13)
--- NOTE | 2020-12-03 13:14 | NUR ---
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 Refer to EMAR for additional details.
[2020-12-03 15:00] VITALS: BP 172/84
--- NOTE | 2020-12-03 15:18 | NUR ---
Pt has not voided approx 8 hours since camarillo removal this am. Pt was encouraged by this RN numerous times to attempt to void per urinal. Pt attempted at this time without success. This RN bladder scanned pt. 779 mL noted on bladder scanner. Pt is post op day 3. Dr. Mario tirado for orders. Addendum: 12/03/20 at 1524 by TALISHA DODD RN This RN received telephone orders from Dr. Martin to replace camarillo catheter.
--- NOTE | 2020-12-03 15:21 | NUR ---
PT Screen complete After review of medical chart, and speaking with JOCELINE Neri, pt. would benefit from PT/OT services at this time. Please issue PT/OT evaluate and Rx orders if you agree. Thank you
[2020-12-03 19:25] VITALS: BP 149/78
[2020-12-03 23:19] VITALS: BP 141/75
[2020-12-04] MEDS: IV RINGERS,LACTATED 1000ML 1,000 ML IV SCH ×3 (00:06→20:43)
[2020-12-04 03:16] VITALS: BP 139/83
[2020-12-04 07:00] VITALS: BP 153/88
--- NOTE | 2020-12-04 08:57 | PDOC ---
SURGICAL PROGRESS NOTE DATE: 12/04/20 TIME: 08:56 Subjective required camarillo replacement, does take flomax less bloating minimal flatus mild nausea Vital Signs Vital Signs Date Time Temp Pulse Resp B/P (MAP) Pulse Ox O2 Delivery O2 Flow Rate FiO2 12/04/20 07:00 98.5 75 20 153/88 (109) 93 98.5 12/04/20 03:16 Room Air 12/03/20 20:00 2.0 I&O Intake and Output 12/04/20 07:00 Intake Total 3336.8 ml Output Total 2300 ml Balance 1036.8 ml Intake Oral 0 ml IV Total 2136.8 ml Other 1200 ml Output Urine Total 2300 ml General: Alert, Oriented X3, Cooperative Abdomen: Soft, Other (dressing dry) Assessment/Plan await improved bowel function resume flomax, possible removal camarillo 1-2 days Justicifation of Admission Dx: Justifications for Admission: Justification of Admission Dx: Yes ANA MARÍA GARCIA APRN Dec 04, 2020 08:57
[2020-12-04] MEDS ORDERED: TAMSULOSIN 0.4 MG CAP.ER.24H. PO ONE (09:00)
[2020-12-04] MEDS ORDERED: TAMSULOSIN 0.4 MG CAP.ER.24H. PO SCH (09:00)
[2020-12-04] MEDS: ENOXAPARIN 40 MG/0.4 ML SYRINGE. SQ SCH (10:28)
[2020-12-04 10:58] VITALS: BP 137/86
--- NOTE | 2020-12-04 12:05 | NUR ---
SW following. 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 Pt had surgery on 11/30/20. Await improved bowel function. SW will continue to follow.
--- NOTE | 2020-12-04 12:13 | PN ---
DATE: 12/04/2020 DAILY PROGRESS NOTE LOCATION: He is in room #414. SUBJECTIVE: This 60-year-old male remains hospitalized after left colon resection for cancer of the colon. He is having some improvement on a daily basis in the last 24 hours. OBJECTIVE: VITAL SIGNS: Stable. He is afebrile. GENERAL: He is awake, alert. He is off O2. CHEST: Clear. HEART: Regular. ABDOMEN: Soft with soft tinkles. He was unable to urinate and had to have Sandoval catheter replaced and we will restart his Flomax with a sip of water this morning and hopefully will be able to urinate later today. Pathology shows 12 out of 28 lymph nodes positive and moderately differentiated adenocarcinoma of the colon. This was discussed with him this morning and will ask for Oncology consultation today. ASSESSMENT: 1. Postoperative status post colon resection for carcinoma of the colon. Awaiting return of bowel function. 2. Vitamin B12 deficiency with neuropathy. PLAN: Continue supportive care. Oncology consult. Flomax p.o. Hopefully again we will be able to discontinue Sandoval catheter later today. KRYS/JEFRY/HAMIDA DR: KRYS/shayne TID: [id number]
[2020-12-04] MEDS: IV NORMAL SALINE 1000ML BAG 1,000 ML IV SCH (13:39)
[2020-12-04 14:53] VITALS: BP 152/82
[2020-12-04 19:00] VITALS: BP 144/73
[2020-12-04] MEDS: GABAPENTIN 300 MG CAPSULE. PO SCH (20:43)
[2020-12-04 23:00] VITALS: BP 143/76
[2020-12-05 03:00] VITALS: BP 144/75
[2020-12-05] MEDS: MORPHINE SULFATE 30 ML IV PRN (03:49)
[2020-12-05] MEDS: IV RINGERS,LACTATED 1000ML 1,000 ML IV SCH ×2 (03:50→16:50)
[2020-12-05 07:00] VITALS: BP 135/85
[2020-12-05] MEDS: ENOXAPARIN 40 MG/0.4 ML SYRINGE. SQ SCH (08:20)
[2020-12-05] MEDS: TAMSULOSIN 0.4 MG CAP.ER.24H. PO SCH (08:20)
[2020-12-05] MEDS: GABAPENTIN 300 MG CAPSULE. PO SCH ×2 (08:20→19:28)
--- NOTE | 2020-12-05 08:33 | PDOC ---
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
[2020-12-05 11:00] VITALS: BP 130/71
[2020-12-05] MEDS: oxyCODONE/APAP 5/325 1 TAB TABLET PO PRN ×4 (11:11→23:42)
--- NOTE | 2020-12-05 13:00 | PDOC2 ---
CONSULT Date of Consult Date of Consult DATE: 12/05/20 TIME: 12:52 Reason for Consult Reason for Consult: Colon cancer Referring Physician Referring Physician: Dr. Quick Identification/Chief Complaint Chief Complaint Colon cancer diagnosis and surgery Source Source: Chart review, Patient History of Present Illness Reason for Visit: Berhane Whitlock is a 60-year-old male who has been admitted to the hospital for hemicolectomy. Berhane reports having had a screening colonoscopy performed recently. He was informed that it showed a near obstructing mass in the sigmoid colon. He established care with Dr. Quick. On 11/30/2020, Dr. Quick performed a sigmoid colectomy. A solid nodule noted on the surface of the liver was also sampled. Pathology showed invasive moderately differentiated colonic adenocarcinoma with invasion through muscularis propria into subserosa consistent with pathologic T3 stage. Metastatic adenocarcinoma was also noted in 12 of 28 sampled mesocolic lymph nodes consistent with a lymph nodes staging of N2b. He is recovering appropriately from surgery. Currently awaiting recovery of bowel function in order to resume oral dietary intake. He reports abdominal discomfort. He denies fever or chills. Reports a family history of metastatic colon cancer in his mother who ultimately succumbed to this diagnosis. He does not have any additional family history of cancer. Medical oncology consultation has been requested for additional recommendations regarding management. Patient is accompanied by his spouse Current Medications Current Medications Current Medications Fentanyl Citrate (Fentanyl 2ml Vial) 25 mcg PRN Q5MIN PRN IVP MILD PAIN 1-3; Start 11/30/20 at 06:00; Stop 11/30/20 at 15:46; Status DC Fentanyl Citrate (Fentanyl 2ml Vial) 50 mcg PRN Q5MIN PRN IVP MODERATE PAIN 4-6 Last administered on 11/30/20at 14:15; Start 11/30/20 at 06:00; Stop 11/30/20 at 15:46; Status DC Morphine Sulfate (Morphine Sulfate) 1 mg PRN Q10MIN PRN IVP SEVERE PAIN 7-10; Start 11/30/20 at 06:00; Stop 11/30/20 at 15:46; Status DC Ringer's Solution 1,000 ml @ 30 mls/hr Q24H IV Last administered on 11/30/20at 08:36; Start 11/30/20 at 06:00; Stop 11/30/20 at 17:59; Status DC Hydromorphone HCl (Dilaudid) 0.5 mg PRN Q10MIN PRN IVP SEVERE PAIN 7-10, 2nd CHOICE; Start 11/30/20 at 06:00; Stop 11/30/20 at 15:46; Status DC Prochlorperazine Edisylate (Compazine) 5 mg PACU PRN PRN IVP NAUSEA, MRX1 Last administered on 11/30/20at 14:00; Start 11/30/20 at 06:00; Stop 11/30/20 at 15:46; Status DC Cefoxitin Sodium (Mefoxin) 2 gm 1X PRN PRN IVP PRIOR TO PROCEDURE Last administered on 11/30/20at 12:11; Start 11/30/20 at 06:00; Stop 11/30/20 at 21:00; Status DC Propofol (Diprivan) 200 mg STK-MED ONCE IV ; Start 11/30/20 at 08:57; Stop 11/30/20 at 08:57; Status DC Lidocaine HCl (Lidocaine Pf 2% Vial) 5 ml STK-MED ONCE .ROUTE ; Start 11/30/20 at 08:57; Stop 11/30/20 at 08:57; Status DC Ondansetron HCl (Zofran) 4 mg STK-MED ONCE .ROUTE ; Start 11/30/20 at 08:57; Stop 11/30/20 at 08:57; Status DC Dexamethasone Sodium Phosphate (Decadron) 4 mg STK-MED ONCE .ROUTE ; Start 11/30/20 at 08:57; Stop 11/30/20 at 08:57; Status DC Dexamethasone Sodium Phosphate (Decadron) 4 mg STK-MED ONCE .ROUTE ; Start 11/30/20 at 08:57; Stop 11/30/20 at 08:58; Status DC Dexamethasone Sodium Phosphate (Decadron) 4 mg STK-MED ONCE .ROUTE ; Start 11/30/20 at 08:57; Stop 11/30/20 at 08:58; Status DC Lidocaine HCl (Xylocaine-Mpf 1% 5ml Vial) 5 ml STK-MED ONCE .ROUTE ; Start 11/30/20 at 08:57; Stop 11/30/20 at 08:58; Status DC Hydromorphone HCl (Dilaudid) 2 mg STK-MED ONCE .ROUTE ; Start 11/30/20 at 09:00; Stop 11/30/20 at 09:01; Status DC Rocuronium [place] (Zemuron) 100 mg STK-MED ONCE .ROUTE ; Start 11/30/20 at 09:01; Stop 11/30/20 at 09:01; Status DC Sevoflurane (Ultane) 90 ml STK-MED ONCE IH ; Start 11/30/20 at 09:01; Stop 11/30/20 at 09:01; Status DC Bupivacaine HCl/ Epinephrine Bitart (Sensorcain-Epi 0.5% Kit) 30 ml STK-MED ONCE .ROUTE Last administered on 11/30/20at 10:47; Start 11/30/20 at 09:34; Stop 11/30/20 at 09:34; Status DC Ephedrine Sulfate (ePHEDrine PF IN SALINE SYRINGE) 50 mg STK-MED ONCE IV ; Start 11/30/20 at 10:53; Stop 11/30/20 at 10:54; Status DC Rocuronium [place] (Zemuron) 100 mg STK-MED ONCE .ROUTE ; Start 11/30/20 at 11:18; Stop 11/30/20 at 11:18; Status DC Glycopyrrolate (Robinul) 1 mg STK-MED ONCE .ROUTE ; Start 11/30/20 at 12:38; Stop 11/30/20 at 12:38; Status DC Neostigmine Methylsulfate (Bloxiverz) 10 mg STK-MED ONCE .ROUTE ; Start 11/30/20 at 12:39; Stop 11/30/20 at 12:39; Status DC Glycopyrrolate (Robinul) 1 mg STK-MED ONCE .ROUTE ; Start 11/30/20 at 12:40; Stop 11/30/20 at 12:41; Status DC Glycopyrrolate (Robinul) 1 mg STK-MED ONCE .ROUTE ; Start 11/30/20 at 12:56; Stop 11/30/20 at 12:56; Status DC Fentanyl Citrate (Fentanyl 2ml Vial) 100 mcg STK-MED ONCE .ROUTE ; Start 11/30/20 at 13:55; Stop 11/30/20 at 13:56; Status DC Prochlorperazine Edisylate (Compazine) 10 mg STK-MED ONCE .ROUTE ; Start 11/30/20 at 13:55; Stop 11/30/20 at 13:56; Status DC Enoxaparin Sodium (Lovenox 40mg Syringe) 40 mg Q24H SQ Last administered on 12/05/20at 08:20; Start 11/30/20 at 09:00 Sodium Chloride (Normal Saline Flush) 3 ml QSHIFT PRN IV AFTER MEDS AND BLOOD DRAWS; Start 11/30/20 at 14:30 Ringer's Solution 1,000 ml @ 50 mls/hr Q20H IV Last administered on 12/05/20at 03:50; Start 11/30/20 at 14:30 Naloxone HCl (Narcan) 0.4 mg PRN Q2MIN PRN IV SEE INSTRUCTIONS; Start 11/30/20 at 14:30 Sodium Chloride 1,000 ml @ 25 mls/hr Q24H IV ; Start 11/30/20 at 14:30; Stop 12/05/20 at 08:39; Status DC Morphine Sulfate 30 ml @ 0 mls/hr CONT PRN PRN IV PER PROTOCOL Last administered on 12/05/20at 03:49; Start 11/30/20 at 14:30; Stop 12/05/20 at 08:33; Status DC Ondansetron HCl (Zofran) 4 mg PRN Q6HRS PRN IVP NAUESA, 1ST CHOICE; Start 11/30/20 at 14:30 Influenza Virus Vaccine Quadrival (Flulaval Quad [id number] Syringe) 0.5 ml ONCE ONCE VAX IM Last administered on 12/01/20at 08:25; Start 11/30/20 at 20:00; Stop 11/30/20 at 20:01; Status DC Tamsulosin HCl (Flomax) 0.4 mg 1X ONCE PO Last administered on 12/04/20at 10:27; Start 12/04/20 at 09:00; Stop 12/04/20 at 09:01; Status DC Tamsulosin HCl (Flomax) 0.4 mg DAILY PO ; Start 12/04/20 at 09:00; Stop 12/04/20 at 08:59; Status DC Gabapentin (Neurontin) 300 mg BID PO Last administered on 12/05/20at 08:20; Start 12/04/20 at 21:00 Tamsulosin HCl (Flomax) 0.4 mg DAILY PO Last administered on 12/05/20at 08:20; Start 12/05/20 at 09:00 Oxycodone/ Acetaminophen (Percocet 5/325) 1 tab PRN Q4HRS PRN PO PAIN Last administered on 12/05/20at 11:11; Start 12/05/20 at 08:30 Morphine Sulfate (Morphine Sulfate) 2 mg PRN Q2HR PRN IVP PAIN; Start 12/05/20 at 08:30 Active Scripts Active Reported Gabapentin 600 Mg Tablet 300 Mg PO BID Flomax (Tamsulosin Hcl) 0.4 Mg Cap.er.24h 1 Cap PO DAILY Cyanocobalamin Injection (Cyanocobalamin (Vitamin B-12)) 1,000 Mcg/1 Ml Vial 1,000 Mcg IJ WEEKLY Daily Value (Multivitamin) 1 Each Tablet 1 Tab PO DAILY 30 Days Allergies Allergies: Coded Allergies: No Known Drug Allergies (Unverified , 11/30/20) ROS Review of System Negative unless stated otherwise in HPI Physical Exam Physical Exam General: Awake, alert, no distress Head: Atraumatic, no conjunctival icterus, normal oral cavity mucosa Neck: Supple, no lymphadenopathy Chest: No trauma noted Cardiovascular: Regular rhythm, normal rate, no murmurs Respiratory: Bilateral air entry noted, lungs clear to auscultation bilaterally. No accessory muscle use Abdominal: Abdomen is soft, nontender, nondistended. Bowel sounds were normal. No hepatomegaly or splenomegaly Musculoskeletal: No deformity noted Extremities: No edema noted Skin: No rash or lesions Neurologic: Alert and oriented x3, no grossly evident neurologic deficits noted. Full neurological exam was not performed Psychiatric: Appropriate mood and affect Vitals VITALS Vital Signs Date Time Temp Pulse Resp B/P (MAP) Pulse Ox O2 Delivery O2 Flow Rate FiO2 12/05/20 11:11 Room Air 12/05/20 11:00 98.6 81 18 130/71 (90) 94 98.6 12/04/20 08:00 2.0 Assessment/Plan Assessment/Plan Assessment: Colonic adenocarcinoma, [id number], stage III Postoperative ileus History of B12 deficiency Recommendations: -We discussed the results of surgical pathology and significance of stage III disease -I discussed with the patient that recurrence rate for stage III colon cancer is typically 30 to 50%. We discussed the data supporting adjuvant chemotherapy for reduction of recurrence risk -We briefly discussed the potential side effects of chemotherapy with FOLFOX 12 cycles. We agreed to defer further discussion of adjuvant chemotherapy to a later time when he is released from the hospital -He reports having and CT CAP and diagnostic imaging. We will request results -Given anticipated chemotherapy, I recommended obtaining a Port-A-Cath for central venous access. He was agreeable to this and will be seeing Dr. Quick to have port placed -Continue postoperative care per Dr. Quick and team -Rest per Dr. Helton. Patient was given contact information for my office to arrange outpatient follow-up. We will plan to see him in 2 to 3 weeks to assess recovery from surgery and discuss timeline for adjuvant chemotherapy MARYELLEN VILLA MD Dec 05, 2020 13:00
[2020-12-05 13:30] LABS: PROTHROMBIN TIME PATIENT 13.1 SEC (11.7-14.0)
[2020-12-05 15:00] VITALS: BP 142/83
--- NOTE | 2020-12-05 16:14 | PN ---
DATE: 12/05/2020 DAILY PROGRESS NOTE LOCATION: He is in room 414. SUBJECTIVE: This 60-year-old male remains hospitalized after left colon resection for cancer of the colon. He is sleeping soundly this morning and slept through at least 2-3 attempts to wake him up verbally. He appears very comfortable and I discussed with nursing and let them know that I have been through. OBJECTIVE: CHEST: Clear. HEART: Regular. ABDOMEN: Soft. He has had a couple of loose bowel movements in the last 24 hours per nursing. We are still awaiting Oncology consultation. IMPRESSION: 1. Postoperative status post colon resection for carcinoma of the colon. 2. Returning bowel function. 3. Vitamin B12 deficiency with neuropathy. PLAN: Continue present. Advance diet per Surgery. Would anticipate discharge probably tomorrow. Hopefully, Oncology will see him today to make plans going forward. JOEY/KATHY DR: Khoa TID: [id number]
[2020-12-05] MEDS: MORPHINE SULFATE 2 MG/ML INJ. IVP PRN (16:44)
[2020-12-05 19:00] VITALS: BP 129/77
[2020-12-05 23:00] VITALS: BP 155/84
[2020-12-06] VITALS (13 sets, daily range): BP systolic 119–165; BP diastolic 65–97
[2020-12-06] MEDS: oxyCODONE/APAP 5/325 1 TAB TABLET PO PRN ×4 (03:44→18:36)
[2020-12-06] MEDS: MORPHINE SULFATE 2 MG/ML INJ. IVP PRN (03:49)
[2020-12-06] MEDS ORDERED: LIDOCAINE 2%/EPI 1:100,000 20 ML VIAL. ONE (07:57)
[2020-12-06] MEDS ORDERED: MIDAZOLAM HCL/PF 2 MG/2 ML VIAL. ONE (08:20)
[2020-12-06] MEDS ORDERED: fentaNYL PF VIAL 100 MCG/2 ML VIAL ONE (08:21)
[2020-12-06] MEDS ORDERED: fentaNYL PF VIAL 100 MCG/2 ML VIAL IV ONE (08:30)
[2020-12-06] MEDS ORDERED: MIDAZOLAM HCL/PF 2 MG/2 ML VIAL. IV ONE (08:30)
[2020-12-06] MEDS ORDERED: LIDOCAINE 2%/EPI 1:100,000 20 ML VIAL. IJ ONE (08:30)
--- NOTE | 2020-12-06 09:50 | PN ---
DATE: 12/06/2020 DAILY PROGRESS NOTE LOCATION: He is in room 414. SUBJECTIVE: This 60-year-old male remains hospitalized after left colon resection for cancer of the colon. He is awake and alert this morning, has had several bowel movements in the last 24 hours. He is generally feeling better, is little bit nervous about getting a port placed today for chemotherapy. He still has only had a soft diet. He still has Sandoval catheter in place, is back on the Flomax and hopefully will be able to urinate after it is removed this morning. OBJECTIVE: VITAL SIGNS: Stable. He is afebrile. GENERAL: He is awake and alert. CHEST: Clear. HEART: Regular. ABDOMEN: Soft. He has decent bowel sounds. Oncology consultation is appreciated. IMPRESSION: 1. Postoperative, status post colon resection for carcinoma of the colon with 03/06 regional lymph nodes positive for metastatic disease. 2. Normal CEA, postop. 3. Vitamin B12 deficiency with neuropathy. PLAN: Continue advanced diet per Surgery, port placement today, likely discharge soon. Hopefully, will be able to urinate when catheter is removed. MORRIS DR: Khoa TID: [id number]
[2020-12-06] MEDS: GABAPENTIN 300 MG CAPSULE. PO SCH ×2 (10:11→21:39)
[2020-12-06] MEDS: TAMSULOSIN 0.4 MG CAP.ER.24H. PO SCH (10:11)
[2020-12-06] MEDS: ENOXAPARIN 40 MG/0.4 ML SYRINGE. SQ SCH (10:13)
--- NOTE | 2020-12-06 10:23 | NUR ---
SW following. Discussed with RN, pt from home with , room air, full liquid diet (possibly advancing today). Pt had a portacath place. Oncology following. RN anticipates discharge home tomorrow. SW will continue to follow.
--- NOTE | 2020-12-06 12:46 | PDOC ---
SURGICAL PROGRESS NOTE DATE: 12/06/20 TIME: 12:45 Subjective Pt with c/o some incisional pain, but otherwise doing well, adwoa soft diet, portacath placed today Vital Signs Vital Signs Date Time Temp Pulse Resp B/P (MAP) Pulse Ox O2 Delivery O2 Flow Rate FiO2 12/06/20 10:15 89 18 165/97 (119) 97 Room Air 12/06/20 09:06 2.0 12/06/20 07:00 98.8 98.8 I&O Intake and Output 12/06/20 07:00 Intake Total 280 ml Output Total 2700 ml Balance -2420 ml Intake Oral 280 ml Output Urine Total 2700 ml General: Alert, Oriented X3, Cooperative, No acute distress Abdomen: Soft, No tenderness Labs Laboratory Tests Test 12/05/20 13:05 Prothrombin Time 13.1 SEC (11.7-14.0) Prothromb Time International Ratio 1.0 (0.8-1.1) Laboratory Tests Test 12/05/20 13:05 Prothrombin Time 13.1 SEC (11.7-14.0) Prothromb Time International Ratio 1.0 (0.8-1.1) Problem List s/p sigmoid ADAT d/c [place] plan d/c home in AM Justicifation of Admission Dx: Justifications for Admission: Justification of Admission Dx: Yes GRANT SCHULER MD Dec 06, 2020 12:46
--- NOTE | 2020-12-06 15:44 | RAD ---
PROCEDURE: Fluoroscopically and ultrasound-guided placement of right internal jugular tunnel central venous catheter with port (Bard PowerPort, Groshong tip ). Clinical Indication: Colon cancer Discussion: The risks and benefits of the procedure were discussed with the patient and/or their eligibility services representative. Informed consent was obtained. The patient was brought to the fluoroscopy suite and placed in supine position. A time out procedure was performed. The right neck and chest were prepped and draped using maximum sterile barrier technique including th e use of: Current guideline approved cutaneous antisepsis, a large sterile sheet to establish a steri le field. Additionally the auxiliary plant operator wore a hat, mask, sterile gloves, a sterile gown during the proce dure as well as practiced acceptable hand hygiene prior to placing the port. Ultrasound-guided access: Ultrasound evaluation showed the right jugular vein to be patent and compr essible. 1 % lidocaine with epinephrine was administered to the skin and subcutaneous tissues overlyi ng the right neck and chest. Under direct ultrasound guidance a single wall puncture was made followe d by tract dilation and placement of a sheath. An ultrasound image was saved and sent to PACS. Next, an incision was made in an infraclavicular location and a pocket created. The catheter was tunneled between the pocket and the venotomy site. The catheter was advanced through the peel away sheath, u nder fluoroscopic guidance, such that it's tip was in the mid right atrium. The catheter was connecte d to the port reservoir. The port was accessed and found to flush and aspirate normally. The reservoi r was then placed into the subcutaneous pocket. The wound was closed in layers using 3 Vicryl and 4- 0 Vicryl suture. Dermabond was applied overlying the wound, and venotomy site. The patient tolerated procedure without immediate complication. Sedation: Conscious sedation was performed for 30 minutes. Sedation was carried out while the patie nt was continually monitored by a member of the Radiology nursing staff. Continual cardiopulmonary m onitoring was carried out during the procedure. The patient tolerated the procedure well and there w ere no immediate complications. Fluoroscopy time: 0.7 mins Dose area product 1 reynaga 7 sq m Impression: Successful ultrasound and fluoroscopically guided placement of right internal jugular ludwig esperanza central venous catheter with port (Bard PowerPort, Groshong tip). Electronically signed by: Josiah Bell MD (12/06/2020 3:42 PM) [id number]
[2020-12-06] MEDS: IV RINGERS,LACTATED 1000ML 1,000 ML IV SCH (18:37)
[2020-12-07] MEDS: oxyCODONE/APAP 5/325 1 TAB TABLET PO PRN ×3 (01:37→13:57)
[2020-12-07] MEDS: MORPHINE SULFATE 2 MG/ML INJ. IVP PRN ×2 (02:31→12:04)
[2020-12-07 03:00] VITALS: BP 136/73
[2020-12-07 07:00] VITALS: BP 126/81
[2020-12-07] MEDS: TAMSULOSIN 0.4 MG CAP.ER.24H. PO SCH (08:34)
[2020-12-07] MEDS: ENOXAPARIN 40 MG/0.4 ML SYRINGE. SQ SCH (08:34)
[2020-12-07] MEDS: GABAPENTIN 300 MG CAPSULE. PO SCH (08:34)
--- NOTE | 2020-12-07 09:33 | PN ---
DATE: 12/07/2020 LOCATION: He is in room 414. SUBJECTIVE: This 60-year-old male remains hospitalized after left colon resection for cancer of the colon. He is awake, alert. He has ongoing bowel movements, generally feeling better, had Port-A-Cath placed yesterday and was a little bit sore. He is tolerating a regular diet. The [place] is out since yesterday and he has urinated. OBJECTIVE: VITAL SIGNS: Stable. GENERAL: He is awake and alert. CHEST: Clear. HEART: Regular. ABDOMEN: Soft with good bowel sounds. IMPRESSION: 1. Postoperative status post colon resection for carcinoma of the colon with 03/06 regional lymph nodes positive for metastatic disease. 2. Normal CEA preop. 3. Vitamin B12 deficiency with neuropathy. PLAN: Continue present care. I anticipate discharge today. He will follow up with me in a couple of weeks as well as Oncology to begin treatment when they feel ready. CRISTOBAL DR: Khoa TID: [id number]
[2020-12-07 10:55] VITALS: BP 120/70
--- NOTE | 2020-12-07 11:43 | PDOC ---
SURGICAL PROGRESS NOTE DATE: 12/07/20 TIME: 11:42 Subjective having stools did urinate Vital Signs Vital Signs Date Time Temp Pulse Resp B/P (MAP) Pulse Ox O2 Delivery O2 Flow Rate FiO2 12/07/20 10:55 98.2 79 16 120/70 (87) 95 Room Air 98.2 12/07/20 04:36 2.0 I&O Intake and Output 12/07/20 07:00 Intake Total 720 ml Output Total 1750 ml Balance -1030 ml Intake Oral 720 ml Output Urine Total 1750 ml General: Alert, Oriented X3, Cooperative Abdomen: Soft, Other (nd, incision intact) Labs Laboratory Tests Test 12/05/20 13:05 Prothrombin Time 13.1 SEC (11.7-14.0) Prothromb Time International Ratio 1.0 (0.8-1.1) Assessment/Plan home today Justicifation of Admission Dx: Justifications for Admission: Justification of Admission Dx: Yes ANA MARÍA GARCIA APRN Dec 07, 2020 11:43
[2020-12-07] MEDS ORDERED: OXYC1TAB15 PO (11:45)
--- NOTE | 2020-12-07 11:47 | DISCH ---
DISCHARGE INSTRUCTIONS Condition on Discharge Condition on Discharge: Stable Activity After Discharge Activity Instructions for Disc: Activity as tolerated Other activity instructions: ok to shower Bathing Instructions: No Tub Bath until see Lifting Instructions after Dis: No heavy lifting, No pulling or pushing Driving Instructions after Dis: Do not drive (while taking pain medication) Wound Incision Care Wound/Incision Care: May get incision wet, No wound care needed Contacting the after DC Call your doctor for: Concerns you may have Follow-Up Follow up with: Dr Quick 1-2 weeks, call [phone] to schedule ANA MARÍA GARCIA APRN Dec 07, 2020 11:47
[2020-12-07] MEDS: IV RINGERS,LACTATED 1000ML 1,000 ML IV SCH (12:27)
--- NOTE | 2020-12-07 13:54 | NUR ---
SW following. Discussed with RN, discharge order for home with self care. RN advised no SW needs.
--- NOTE | 2020-12-07 14:37 | NUR ---
Pt. discharged to home, rx sent to pharmacy, verbalized understanding of discharge instructions.
--- NOTE | 2020-12-12 13:37 | PDOC3 ---
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 Whitlock is a 60 old male who underwent laparoscopic converted to open sigmoid colectomy, liver biopsy. Postoperatively slow return of bowel function. At discharge tolerating diet, urinating, and pain controlled. Discharge Information Condition at Discharge: Stable Follow Up: Weeks (2) Disposition/Orders: D/C to Home Scheduled Cyanocobalamin (Vitamin B-12) (Cyanocobalamin Injection) 1,000 Mcg/1 Ml Vial, 1,000 MCG IJ WEEKLY for vitamin, (Reported) Entered as Reported by: TREMAINE MATHEW on 11/30/20821 Last Taken: Unknown Dose on 11/29/20 Last Action: HELD on 12/04/20855 by Ana María Garcia Gabapentin (Gabapentin) 600 Mg Tablet, 300 MG PO BID for NEUROGENIC PAIN, (Reported) Entered as Reported by: TREMAINE MATHEW on 11/30/20822 Last Taken: Unknown Dose on 11/29/20 Last Action: Converted on 12/04/20855 by Ana María Garcia Multivitamin (Daily Value) 1 Each Tablet, 1 TAB PO DAILY for vitamin for 30 Days, #30 Ref 0 (Reported) Entered as Reported by: TREMAINE MATHEW on 11/30/20820 Last Taken: Unknown Dose on 11/27/20 Last Action: HELD on 12/04/20855 by Ana María Garcia Tamsulosin Hcl (Flomax) 0.4 Mg Cap.er.24h, 1 CAP PO DAILY for urinary, #30 Ref 11 (Reported) Entered as Reported by: TREMAINE MATHEW on 11/30/20822 Last Taken: Unknown Dose on 11/30/20 Last Action: Continued on 12/04/20855 by Ana María Garcia Scheduled PRN Oxycodone/Apap 5-325 (Percocet 5-325 Mg Tablet ) 1 Each Tablet, 1 TAB PO PRN Q4HRS PRN for PAIN, #20 Ref 0 Prescribed by: Ana María Garcia on 12/07/20 1145 Justicifation of Admission Dx: Justifications for Admission: Justification of Admission Dx: Yes ANA MARÍA GARCIA HEARING SPECIALIST Dec 12, 2020 13:37
== END 2020-12-07 14:30 | disposition home or self-care (01) | DRG 330 ==
LOC: SURG 07:44 → 4 NORTH 14:16
PROVIDERS: ADMIT Surgery; ATTEND Surgery
PROC: 0DJD4ZZ Inspection of Lower Intestinal Tract, Percutaneous Endoscopic Approach (ICD-10-PCS; 2020-11-30)
PROC: 0FB14ZX Excision of Right Lobe Liver, Percutaneous Endoscopic Approach, Diagnostic (ICD-10-PCS; 2020-11-30)
PROC: 07BB0ZZ Excision of Mesenteric Lymphatic, Open Approach (ICD-10-PCS; 2020-11-30)
PROC: 0DBN0ZZ Excision of Sigmoid Colon, Open Approach (ICD-10-PCS; principal; 2020-11-30 09:00)
PROC: 0JH63XZ Insertion of Tunneled Vascular Access Device into Chest Subcutaneous Tissue and Fascia, Percutaneous Approach (ICD-10-PCS; 2020-12-06)
PROC: 02H633Z Insertion of Infusion Device into Right Atrium, Percutaneous Approach (ICD-10-PCS; 2020-12-06)
PROC: B5181ZA Fluoroscopy of Superior Vena Cava using Low Osmolar Contrast, Guidance (ICD-10-PCS; 2020-12-06)
PROC: B548ZZA Ultrasonography of Superior Vena Cava, Guidance (ICD-10-PCS; 2020-12-06)
DX: C18.7 Malignant neoplasm of sigmoid colon (principal); K56.7 Ileus, unspecified; C18.6 Malignant neoplasm of descending colon; C77.9 Secondary and unspecified malignant neoplasm of lymph node, unspecified; E53.8 Deficiency of other specified B group vitamins; G62.9 Polyneuropathy, unspecified; K76.89 Other specified diseases of liver; N40.0 Benign prostatic hyperplasia without lower urinary tract symptoms; Z53.31 Laparoscopic surgical procedure converted to open procedure; Z80.0 Family history of malignant neoplasm of digestive organs; Z85.038 Personal history of other malignant neoplasm of large intestine; Z87.891 Personal history of nicotine dependence
CPT/HCPCS: 36415; 36561; 74018; 76937; 77001; 80048; 82378; 85025; 85610; 88307; 88309; 88331; 90471; 90686; 99152; 99153; A4314; A4364; A4930; A6219; A6253; A6402; C1892; J0690; J0694; J0780; J1100; J1170; J1650; J2250; J2270; J2405; J2704; J2710; J3010; J3490; J7120; G0378

== ENCOUNTER → 2020-12-26 | Outpatient (CLI) | payer OTHER ==
[2020-12-07 10:55] VITALS: BP 120/70
[~2020-12-26] MED LIST changes: +CYAN10002 IJ; +GABA600T7 PO; -HYDROmorphone 2 MG/ML VIAL IVP PRN; -IV RINGERS,LACTATED 1000ML 1,000 ML IV SCH; -MORPHINE SULFATE 2 MG/ML INJ. IVP PRN; +MULT-496 PO; +OXYC1TAB15 PO; -PROCHLORPERAZINE 10 MG/2 ML VIAL. IVP PRN; +TAMS0.4C97 PO; -fentaNYL PF VIAL 100 MCG/2 ML VIAL IVP PRN
[2020-12-26 14:05] LABS: BASO # 0.1 x10^3/uL (0.0-0.2); BASO % 1 % (0-3); EOS # 0.2 x10^3/uL (0.0-0.7); EOS % 2 % (0-3); HEMATOCRIT 40.4 % (39.0-53.0); HEMOGLOBIN 13.8 g/dL (13.0-17.5); LYMPH # 2.5 x10^3/uL (1.0-4.8); LYMPH % 37 % (24-48); MEAN CORPUSCULAR HEMOGLOBIN 31 pg (25-35); MEAN CORPUSCULAR HGB CONC 34 g/dL (31-37); MEAN CORPUSCULAR VOLUME 90 fL (79-100); MONO # 0.4 x10^3/uL (0.0-1.1); MONO % 6 % (0-9); NEUT # 3.7 x10^3/uL (1.8-7.7); NEUT % 54 % (31-73); PLATELET COUNT 220 x10^3/uL (140-400); RED CELL DISTRIBUTION WIDTH 13.2 % (11.5-14.5); WHITE BLOOD COUNT 6.9 x10^3/uL (4.0-11.0)
[2020-12-26 14:23] LABS: CALCIUM 8.6 mg/dL (8.5-10.1); CREATININE 0.8 mg/dL (0.7-1.3)
[2020-12-26 14:27] LABS: ALBUMIN 3.7 g/dL (3.4-5.0); TOTAL BILIRUBIN 0.8 mg/dL (0.2-1.0); TOTAL PROTEIN 7.5 g/dL (6.4-8.2)
[2020-12-27 18:17] LABS: CEA 2.5 ng/mL (0.0-4.7)
== END ==
LOC: ONCLAB 13:24
PROVIDERS: ATTEND Internal Medicine Hematology & Oncology
DX: C18.7 Malignant neoplasm of sigmoid colon (principal)
CPT/HCPCS: 36415; 80053; 82378; 82607; 82746; 83921; 85025

== ENCOUNTER → 2021-01-10 | Outpatient (CLI) | payer OTHER ==
[2021-01-10 09:35] LABS: BASO # 0.1 x10^3/uL (0.0-0.2); BASO % 1 % (0-3); EOS # 0.2 x10^3/uL (0.0-0.7); EOS % 3 % (0-3); HEMATOCRIT 41.8 % (39.0-53.0); LYMPH # 2.2 x10^3/uL (1.0-4.8); LYMPH % 39 % (24-48); MEAN CORPUSCULAR HEMOGLOBIN 30 pg (25-35); MEAN CORPUSCULAR HGB CONC 34 g/dL (31-37); MEAN CORPUSCULAR VOLUME 90 fL (79-100); MONO # 0.5 x10^3/uL (0.0-1.1); MONO % 9 % (0-9); NEUT # 2.7 x10^3/uL (1.8-7.7); NEUT % 48 % (31-73); PLATELET COUNT 245 x10^3/uL (140-400); RED BLOOD COUNT 4.63 x10^6/uL (4.30-5.70); RED CELL DISTRIBUTION WIDTH 13.3 % (11.5-14.5); WHITE BLOOD COUNT 5.6 x10^3/uL (4.0-11.0)
[2021-01-10 10:08] LABS: CALCIUM 8.7 mg/dL (8.5-10.1); CREATININE 0.8 mg/dL (0.7-1.3); POTASSIUM 3.5 mmol/L (3.5-5.1)
[2021-01-10 10:14] LABS: ALBUMIN 3.7 g/dL (3.4-5.0); TOTAL BILIRUBIN 0.6 mg/dL (0.2-1.0); TOTAL PROTEIN 7.5 g/dL (6.4-8.2)
== END ==
LOC: ONCLAB 09:26
PROVIDERS: ATTEND Internal Medicine Hematology & Oncology
DX: C18.7 Malignant neoplasm of sigmoid colon (principal)
CPT/HCPCS: 36415; 80053; 85025

== ENCOUNTER → 2021-01-17 | Outpatient (CLI) | payer OTHER ==
[2021-01-17 14:25] LABS: BASO # 0.1 x10^3/uL (0.0-0.2); BASO % 1 % (0-3); EOS # 0.2 x10^3/uL (0.0-0.7); EOS % 3 % (0-3); HEMATOCRIT 40.3 % (39.0-53.0); LYMPH # 2.6 x10^3/uL (1.0-4.8); LYMPH % 43 % (24-48); MEAN CORPUSCULAR HEMOGLOBIN 31 pg (25-35); MEAN CORPUSCULAR HGB CONC 35 g/dL (31-37); MEAN CORPUSCULAR VOLUME 89 fL (79-100); MONO # 0.4 x10^3/uL (0.0-1.1); MONO % 6 % (0-9); NEUT # 2.8 x10^3/uL (1.8-7.7); NEUT % 47 % (31-73); PLATELET COUNT 201 x10^3/uL (140-400); RED BLOOD COUNT 4.55 x10^6/uL (4.30-5.70); RED CELL DISTRIBUTION WIDTH 13.2 % (11.5-14.5)
[2021-01-17 14:47] LABS: ALBUMIN 3.8 g/dL (3.4-5.0); ALBUMIN/GLOBULIN RATIO 1.1 (1.0-1.7); CALCIUM 8.6 mg/dL (8.5-10.1); CREATININE 0.8 mg/dL (0.7-1.3); TOTAL BILIRUBIN 0.4 mg/dL (0.2-1.0); TOTAL PROTEIN 7.2 g/dL (6.4-8.2)
[2021-01-17 14:50] LABS: POTASSIUM 2.8 mmol/L (3.5-5.1)
== END ==
LOC: ONCLAB 14:09
PROVIDERS: ATTEND Internal Medicine Hematology & Oncology
DX: C18.7 Malignant neoplasm of sigmoid colon (principal)
CPT/HCPCS: 36415; 80053; 85025

== ENCOUNTER → 2021-01-19 | Outpatient (CLI) | payer OTHER ==
[2021-01-19 12:51] LABS: BASO % 1 % (0-3); EOS # 0.2 x10^3/uL (0.0-0.7); EOS % 3 % (0-3); HEMATOCRIT 38.8 % (39.0-53.0); HEMOGLOBIN 13.3 g/dL (13.0-17.5); LYMPH # 2.4 x10^3/uL (1.0-4.8); LYMPH % 47 % (24-48); MEAN CORPUSCULAR HEMOGLOBIN 31 pg (25-35); MEAN CORPUSCULAR HGB CONC 34 g/dL (31-37); MEAN CORPUSCULAR VOLUME 89 fL (79-100); MONO # 0.4 x10^3/uL (0.0-1.1); MONO % 8 % (0-9); NEUT # 2.2 x10^3/uL (1.8-7.7); NEUT % 41 % (31-73); PLATELET COUNT 204 x10^3/uL (140-400); RED BLOOD COUNT 4.34 x10^6/uL (4.30-5.70); RED CELL DISTRIBUTION WIDTH 13.1 % (11.5-14.5); WHITE BLOOD COUNT 5.2 x10^3/uL (4.0-11.0)
[2021-01-19 13:12] LABS: ALBUMIN 3.7 g/dL (3.4-5.0); CALCIUM 8.5 mg/dL (8.5-10.1); CREATININE 0.7 mg/dL (0.7-1.3); GFR 114.3; TOTAL BILIRUBIN 0.5 mg/dL (0.2-1.0); TOTAL PROTEIN 7.4 g/dL (6.4-8.2)
[2021-01-19 13:16] LABS: POTASSIUM 2.7 mmol/L (3.5-5.1)
== END ==
LOC: SPEC 12:43
PROVIDERS: ATTEND Internal Medicine Hematology & Oncology
DX: C18.7 Malignant neoplasm of sigmoid colon (principal)
CPT/HCPCS: 36415; 80053; 85025

== ENCOUNTER → 2021-01-24 | Outpatient (CLI) | payer OTHER ==
[2021-01-24 10:15] LABS: BASO # 0.1 x10^3/uL (0.0-0.2); BASO % 2 % (0-3); EOS # 0.1 x10^3/uL (0.0-0.7); EOS % 4 % (0-3); HEMATOCRIT 39.1 % (39.0-53.0); HEMOGLOBIN 13.3 g/dL (13.0-17.5); LYMPH % 50 % (24-48); MEAN CORPUSCULAR HEMOGLOBIN 31 pg (25-35); MEAN CORPUSCULAR HGB CONC 34 g/dL (31-37); MEAN CORPUSCULAR VOLUME 91 fL (79-100); MONO # 0.3 x10^3/uL (0.0-1.1); MONO % 8 % (0-9); NEUT # 1.4 x10^3/uL (1.8-7.7); NEUT % 36 % (31-73); PLATELET COUNT 207 x10^3/uL (140-400); RED BLOOD COUNT 4.31 x10^6/uL (4.30-5.70); RED CELL DISTRIBUTION WIDTH 13.6 % (11.5-14.5)
[2021-01-24 10:19] LABS: CALCIUM 8.4 mg/dL (8.5-10.1); CREATININE 0.9 mg/dL (0.7-1.3); GFR 85.5; POTASSIUM 3.4 mmol/L (3.5-5.1)
[2021-01-24 10:26] LABS: ALBUMIN 3.5 g/dL (3.4-5.0); TOTAL BILIRUBIN 0.5 mg/dL (0.2-1.0); TOTAL PROTEIN 6.9 g/dL (6.4-8.2)
== END ==
LOC: ONCLAB 16:03
PROVIDERS: ATTEND Internal Medicine Hematology & Oncology
DX: C18.7 Malignant neoplasm of sigmoid colon (principal)
CPT/HCPCS: 36415; 80053; 82378; 85025

== ENCOUNTER → 2021-01-30 | Outpatient (CLI) | payer OTHER ==
[2021-01-30 13:57] LABS: BASO # 0.1 x10^3/uL (0.0-0.2); BASO % 1 % (0-3); EOS # 0.2 x10^3/uL (0.0-0.7); EOS % 2 % (0-3); HEMOGLOBIN 13.2 g/dL (13.0-17.5); LYMPH % 29 % (24-48); MEAN CORPUSCULAR HEMOGLOBIN 31 pg (25-35); MEAN CORPUSCULAR HGB CONC 34 g/dL (31-37); MEAN CORPUSCULAR VOLUME 92 fL (79-100); MONO # 1.3 x10^3/uL (0.0-1.1); MONO % 13 % (0-9); NEUT # 5.8 x10^3/uL (1.8-7.7); NEUT % 56 % (31-73); PLATELET COUNT 177 x10^3/uL (140-400); RED BLOOD COUNT 4.24 x10^6/uL (4.30-5.70); RED CELL DISTRIBUTION WIDTH 14.4 % (11.5-14.5); WHITE BLOOD COUNT 10.4 x10^3/uL (4.0-11.0)
[2021-01-30 14:28] LABS: CALCIUM 8.2 mg/dL (8.5-10.1); CREATININE 0.9 mg/dL (0.7-1.3); GFR 85.5; POTASSIUM 3.7 mmol/L (3.5-5.1)
[2021-01-30 14:33] LABS: ALBUMIN 3.6 g/dL (3.4-5.0); ALBUMIN/GLOBULIN RATIO 1.1 (1.0-1.7); TOTAL BILIRUBIN 0.3 mg/dL (0.2-1.0); TOTAL PROTEIN 6.9 g/dL (6.4-8.2)
[2021-01-30 14:39] LABS: % BANDS 18 % (0-9); % BASOS 1 % (0-3); % EOS 3 % (0-5); % LYMPHS 30 % (24-48); % MONOS 13 % (0-10); % SEGS 35 % (35-66)
[2021-01-30 14:42] LABS: PLT ESTIMATE ADEQUATE (ADEQUATE); TOXIC GRANULATION PRESENT
== END ==
LOC: ONCLAB 13:41
PROVIDERS: ATTEND Physician Assistant
DX: C18.7 Malignant neoplasm of sigmoid colon (principal)
CPT/HCPCS: 36415; 80053; 82378; 85007; 85025

== ENCOUNTER → 2021-02-07 | Outpatient (CLI) | payer OTHER ==
[2021-02-07 10:31] LABS: BASO # 0.1 x10^3/uL (0.0-0.2); BASO % 2 % (0-3); EOS # 0.2 x10^3/uL (0.0-0.7); EOS % 3 % (0-3); HEMATOCRIT 41.1 % (39.0-53.0); HEMOGLOBIN 13.7 g/dL (13.0-17.5); LYMPH # 2.2 x10^3/uL (1.0-4.8); LYMPH % 27 % (24-48); MEAN CORPUSCULAR HEMOGLOBIN 31 pg (25-35); MEAN CORPUSCULAR HGB CONC 33 g/dL (31-37); MEAN CORPUSCULAR VOLUME 92 fL (79-100); MONO # 0.6 x10^3/uL (0.0-1.1); MONO % 7 % (0-9); NEUT % 61 % (31-73); PLATELET COUNT 150 x10^3/uL (140-400); RED BLOOD COUNT 4.46 x10^6/uL (4.30-5.70); RED CELL DISTRIBUTION WIDTH 15.7 % (11.5-14.5); WHITE BLOOD COUNT 8.2 x10^3/uL (4.0-11.0)
[2021-02-07 10:39] LABS: CALCIUM 8.6 mg/dL (8.5-10.1); CREATININE 0.8 mg/dL (0.7-1.3); POTASSIUM 3.6 mmol/L (3.5-5.1)
[2021-02-07 10:45] LABS: ALBUMIN 3.4 g/dL (3.4-5.0); ALBUMIN/GLOBULIN RATIO 0.9 (1.0-1.7); TOTAL BILIRUBIN 0.4 mg/dL (0.2-1.0)
== END ==
LOC: ONCLAB 10:13
PROVIDERS: ATTEND Internal Medicine Hematology & Oncology
DX: C18.7 Malignant neoplasm of sigmoid colon (principal)
CPT/HCPCS: 36415; 80053; 85025

== ENCOUNTER → 2021-02-21 | Outpatient (CLI) | payer OTHER ==
[2021-02-21 10:43] LABS: BASO # 0.1 x10^3/uL (0.0-0.2); BASO % 2 % (0-3); EOS # 0.2 x10^3/uL (0.0-0.7); EOS % 3 % (0-3); HEMATOCRIT 38.5 % (39.0-53.0); HEMOGLOBIN 12.8 g/dL (13.0-17.5); LYMPH # 1.5 x10^3/uL (1.0-4.8); LYMPH % 27 % (24-48); MEAN CORPUSCULAR HEMOGLOBIN 31 pg (25-35); MEAN CORPUSCULAR HGB CONC 33 g/dL (31-37); MEAN CORPUSCULAR VOLUME 93 fL (79-100); MONO % 17 % (0-9); NEUT # 2.9 x10^3/uL (1.8-7.7); NEUT % 51 % (31-73); PLATELET COUNT 236 x10^3/uL (140-400); RED BLOOD COUNT 4.15 x10^6/uL (4.30-5.70); RED CELL DISTRIBUTION WIDTH 16.8 % (11.5-14.5); WHITE BLOOD COUNT 5.7 x10^3/uL (4.0-11.0)
[2021-02-21 10:53] LABS: CALCIUM 8.6 mg/dL (8.5-10.1); CREATININE 0.8 mg/dL (0.7-1.3); POTASSIUM 3.2 mmol/L (3.5-5.1)
[2021-02-21 11:06] LABS: ALBUMIN/GLOBULIN RATIO 0.6 (1.0-1.7); TOTAL BILIRUBIN 0.8 mg/dL (0.2-1.0); TOTAL PROTEIN 7.9 g/dL (6.4-8.2)
== END ==
LOC: ONCLAB 10:10
PROVIDERS: ATTEND Internal Medicine Hematology & Oncology
DX: C18.7 Malignant neoplasm of sigmoid colon (principal)
CPT/HCPCS: 36415; 80053; 82378; 85025

== ENCOUNTER → 2021-02-21 | Outpatient (CLI) | payer OTHER ==
--- NOTE | 2021-02-21 12:09 | RAD ---
Site ID: [id number] EXAMINATION: Right lower extremity duplex venous ultrasound. TECHNIQUE: DVT protocol. Multiple sonographic images with color Doppler and waveform interrogation we re performed of the right lower extremity veins with compression and augmentation maneuvers. INDICATION: 60 years Male, right leg Pain . FINDINGS: There is noncompressibility compatible with the DVT nearly occlusive involving the lower po rtion of the common femoral vein. The common femoral vein above the saphenofemoral junction is largel y patent. There is a nonocclusive DVT involving the right superficial femoral vein, popliteal vein an d the peroneal and posterior tibial veins.. IMPRESSION: Significant burden of DVT in the right lower extremity from the common femoral vein below the sapheno femoral junction to the calf veins. Critical result: Findings given by the histology technologist performing the exam phone to Dr. Joaquin, at 2020 1140 PM. RESULT CODE: (C) Electronically signed by: Sven Oliva MD (02/21/2021 12:07 PM) [id number]
== END ==
LOC: US 10:52
PROVIDERS: ATTEND Internal Medicine Hematology & Oncology
DX: I82.411 Acute embolism and thrombosis of right femoral vein (principal)
CPT/HCPCS: 93971

== ENCOUNTER → 2021-03-01 | Outpatient (CLI) | payer OTHER ==
[2021-03-01 14:00] LABS: BASO # 0.1 x10^3/uL (0.0-0.2); BASO % 1 % (0-3); EOS # 0.4 x10^3/uL (0.0-0.7); EOS % 2 % (0-3); HEMATOCRIT 35.4 % (39.0-53.0); HEMOGLOBIN 11.9 g/dL (13.0-17.5); LYMPH # 2.8 x10^3/uL (1.0-4.8); LYMPH % 17 % (24-48); MEAN CORPUSCULAR HEMOGLOBIN 31 pg (25-35); MEAN CORPUSCULAR HGB CONC 34 g/dL (31-37); MEAN CORPUSCULAR VOLUME 92 fL (79-100); MONO # 2.3 x10^3/uL (0.0-1.1); MONO % 14 % (0-9); NEUT % 66 % (31-73); PLATELET COUNT 270 x10^3/uL (140-400); RED BLOOD COUNT 3.86 x10^6/uL (4.30-5.70); RED CELL DISTRIBUTION WIDTH 16.7 % (11.5-14.5); WHITE BLOOD COUNT 16.5 x10^3/uL (4.0-11.0)
[2021-03-01 14:12] LABS: CALCIUM 8.3 mg/dL (8.5-10.1); CREATININE 0.7 mg/dL (0.7-1.3); GFR 114.3; POTASSIUM 3.1 mmol/L (3.5-5.1)
[2021-03-01 14:17] LABS: ALBUMIN 2.9 g/dL (3.4-5.0); ALBUMIN/GLOBULIN RATIO 0.6 (1.0-1.7); TOTAL BILIRUBIN 0.3 mg/dL (0.2-1.0); TOTAL PROTEIN 7.6 g/dL (6.4-8.2)
[2021-03-01 14:39] LABS: % BANDS 15 % (0-9); % BASOS 1 % (0-3); % EOS 5 % (0-5); % LYMPHS 18 % (24-48); % MONOS 12 % (0-10); % SEGS 49 % (35-66)
[2021-03-01 14:42] LABS: ANISOCYTOSIS SLIGHT; PLT ESTIMATE ADEQUATE (ADEQUATE); POLYCHROMASIA SLIGHT; TOXIC GRANULATION MOD
== END ==
LOC: ONCLAB 13:42
PROVIDERS: ATTEND Internal Medicine Hematology & Oncology
DX: C18.7 Malignant neoplasm of sigmoid colon (principal)
CPT/HCPCS: 36415; 80053; 85007; 85025

== ENCOUNTER → 2021-03-12 | Outpatient (CLI) | payer OTHER ==
[2021-03-12 12:36] LABS: BASO % 0 % (0-3); EOS # 0.2 x10^3/uL (0.0-0.7); EOS % 3 % (0-3); HEMATOCRIT 38.3 % (39.0-53.0); LYMPH % 34 % (24-48); MEAN CORPUSCULAR HEMOGLOBIN 31 pg (25-35); MEAN CORPUSCULAR HGB CONC 34 g/dL (31-37); MEAN CORPUSCULAR VOLUME 92 fL (79-100); MONO # 0.8 x10^3/uL (0.0-1.1); MONO % 10 % (0-9); NEUT # 4.6 x10^3/uL (1.8-7.7); NEUT % 53 % (31-73); PLATELET COUNT 382 x10^3/uL (140-400); RED BLOOD COUNT 4.16 x10^6/uL (4.30-5.70); RED CELL DISTRIBUTION WIDTH 17.2 % (11.5-14.5); WHITE BLOOD COUNT 8.7 x10^3/uL (4.0-11.0)
[2021-03-12 12:54] LABS: CALCIUM 8.1 mg/dL (8.5-10.1); CREATININE 0.8 mg/dL (0.7-1.3); POTASSIUM 4.3 mmol/L (3.5-5.1)
[2021-03-12 12:58] LABS: ALBUMIN 3.2 g/dL (3.4-5.0); ALBUMIN/GLOBULIN RATIO 0.6 (1.0-1.7); TOTAL BILIRUBIN 0.3 mg/dL (0.2-1.0); TOTAL PROTEIN 8.4 g/dL (6.4-8.2)
== END ==
LOC: ONCLAB 11:56
PROVIDERS: ATTEND Internal Medicine Hematology & Oncology
DX: C18.7 Malignant neoplasm of sigmoid colon (principal)
CPT/HCPCS: 36415; 80053; 85025

== ENCOUNTER → 2021-03-26 | Outpatient (CLI) | payer OTHER ==
[2021-03-26 11:10] LABS: BASO # 0.1 x10^3/uL (0.0-0.2); BASO % 1 % (0-3); EOS # 0.2 x10^3/uL (0.0-0.7); EOS % 3 % (0-3); HEMOGLOBIN 13.3 g/dL (13.0-17.5); LYMPH # 2.5 x10^3/uL (1.0-4.8); LYMPH % 35 % (24-48); MEAN CORPUSCULAR HEMOGLOBIN 30 pg (25-35); MEAN CORPUSCULAR HGB CONC 33 g/dL (31-37); MEAN CORPUSCULAR VOLUME 91 fL (79-100); MONO # 0.5 x10^3/uL (0.0-1.1); MONO % 8 % (0-9); NEUT # 3.9 x10^3/uL (1.8-7.7); NEUT % 54 % (31-73); PLATELET COUNT 152 x10^3/uL (140-400); RED CELL DISTRIBUTION WIDTH 18.1 % (11.5-14.5); WHITE BLOOD COUNT 7.3 x10^3/uL (4.0-11.0)
[2021-03-26 11:29] LABS: CALCIUM 8.3 mg/dL (8.5-10.1); CREATININE 0.8 mg/dL (0.7-1.3); POTASSIUM 3.4 mmol/L (3.5-5.1)
[2021-03-26 11:34] LABS: ALBUMIN 3.4 g/dL (3.4-5.0); ALBUMIN/GLOBULIN RATIO 0.8 (1.0-1.7); TOTAL BILIRUBIN 0.5 mg/dL (0.2-1.0); TOTAL PROTEIN 7.6 g/dL (6.4-8.2)
== END ==
LOC: ONCLAB 10:53
PROVIDERS: ATTEND Internal Medicine Hematology & Oncology
DX: C18.7 Malignant neoplasm of sigmoid colon (principal)
CPT/HCPCS: 36415; 80053; 85025

== ENCOUNTER → 2021-04-09 | Outpatient (CLI) | payer OTHER ==
[2021-04-09 11:15] LABS: CREATININE 0.9 mg/dL (0.7-1.3); GFR 85.5; POTASSIUM 3.5 mmol/L (3.5-5.1)
[2021-04-09 11:16] LABS: BASO # 0.1 x10^3/uL (0.0-0.2); BASO % 1 % (0-3); EOS # 0.3 x10^3/uL (0.0-0.7); EOS % 2 % (0-3); HEMATOCRIT 36.2 % (39.0-53.0); HEMOGLOBIN 11.9 g/dL (13.0-17.5); LYMPH # 2.6 x10^3/uL (1.0-4.8); LYMPH % 17 % (24-48); MEAN CORPUSCULAR HEMOGLOBIN 31 pg (25-35); MEAN CORPUSCULAR HGB CONC 33 g/dL (31-37); MEAN CORPUSCULAR VOLUME 93 fL (79-100); MONO # 1.5 x10^3/uL (0.0-1.1); MONO % 10 % (0-9); NEUT # 10.3 x10^3/uL (1.8-7.7); NEUT % 70 % (31-73); PLATELET COUNT 156 x10^3/uL (140-400); RED BLOOD COUNT 3.91 x10^6/uL (4.30-5.70); RED CELL DISTRIBUTION WIDTH 19.4 % (11.5-14.5); WHITE BLOOD COUNT 14.7 x10^3/uL (4.0-11.0)
[2021-04-09 11:24] LABS: ALBUMIN/GLOBULIN RATIO 0.6 (1.0-1.7); TOTAL BILIRUBIN 0.3 mg/dL (0.2-1.0); TOTAL PROTEIN 7.7 g/dL (6.4-8.2)
== END ==
LOC: ONCLAB 10:34
PROVIDERS: ATTEND Internal Medicine Hematology & Oncology
DX: C18.7 Malignant neoplasm of sigmoid colon (principal)
CPT/HCPCS: 36415; 80053; 82378; 85025